=== PATIENT | female | born 1945 | race Caucasian/White ===

== ENCOUNTER 2018-06-14 17:00 | Inpatient (IN) | payer MEDICARE, MEDICAID ==
--- NOTE | 2018-06-14 17:07 | ED Physician Chart ---
ED Chief Complaint/HPI - Patient Information Date Seen:: 06/14/18 Time Seen:: 17:25 Chief Complaint:: Agitation History of Present Illness:: onset x 2 days of agitation and hostile behavior; no report of trauma, LOC, ALOC , AMS, H/As, neck pain, C/P, SOB, SIs, Abd. Pain, A/N/V/D/C, fever, chills, or urinary s/s Historian:: Patient, EMS Review:: Nurse's Note Reviewed, Old Chart Reviewed, EMS run form Reviewed ED Review of Systems - Review of Systems General/Constitutional: No fever, No chills, No weight loss, No weakness, No diaphoresis, No edema, No loss of appetite Skin: No skin lesions, No rash, No bruising Head: No headache, No light-headedness Eyes: No loss of vision, No pain, No diplopia ENT: No earache, No nasal drainage, No sore throat, No tinnitus Neck: No neck pain, No swelling, No thyromegaly, No stiffness, No mass noted Cardio Vascular: No chest pain, No palpitations, No PND, No orthopnea, No edema Pulmonary: No SOB, No cough, No sputum, No wheezing GI: No nausea, No vomiting, No diarrhea, No pain, No melena, No hematochezia, No constipation, No hematemesis G/U: No dysuria, No frequency, No hematuria, No nacturia Cell Tender: No vaginal discharge, No abnormal vaginal bleed, No contraction Musculoskeletal: No bone or joint pain, No back pain, No muscle pain Endocrine: No polyuria, No polydipsia Psychiatric: Prior psych history, Depression, Anxiety, No suicidal ideation, No homicidal ideation, No auditory hallucination, No visual hallucination Hematopoietic: No bruising, No lymphadenopathy Allergic/Immuno: No urticaria, No angioedema Neurological: No syncope, No focal symptoms, No weakness, No paresthesia, No headache, No seizure, No dizziness, Confusion, No vertigo ED Past Medical History - Past Medical History Obtainable: Yes Past Medical History: HTN, DM, PUD/GERD, ESRD, Dementia Family History: Diabetes Melitus, HTN Social History: Non Smoker, No Alcohol, No Drug Use, Single, Care Facility Surgical History: None Psychiatricy History: Depression, Bipolar, Dementia Medication: Reviewed Family Medical History - Family Member Mother History Unknown: Yes ED Physical Exam - Physical Examination General/Constitutional: Awake, Well-developed, well-nourished, Alert, No distress, GCS 15, Non-toxic appearing, Ambulatory Head: Atraumatic Eyes: Lids, conjuctiva normal, PERRL, EOMI Skin: Nl inspection, No rash, No skin lesions, No ecchymosis, Well hydrated, No lymphadenopathy ENMT: External ears, nose nl, TM canals nl, Nasal exam nl, Lips, teeth, gums nl , Oropharynx nl, Tonsils nl Neck: Nontender, Full ROM w/o pain, No JVD, No nuchal rigidity, No bruit, No mass, No stridor Respiratory: Nl effort/Exclusion, Clear to Auscultation, No Wheeze/Rhonchi/Rales Cardio Vascular: RRR, No murmur, gallop, rubs, NL S1 S2, Carotid/Femoral/Distal pulses equal bilaterally GI: No tenderness/rebounding/guarding, No organomegaly, No hernia, Normal BS's, Nondistended, No mass/bruits, No McBurney tenderness : No CVA tenderness Extremities: No tenderness or effusion, Full ROM, normal strength in all extremities, No edema, Normal digits & nails Neuro/Psych: Alert/oriented, DTR's symmetric, Normal sensory exam, Normal motor strength, Judgement/insight normal, Mood normal, Normal gait, No focal deficits Other Neuro/Psych comments:: + Psychomotor Agitation; no SIs; Mood/Affect: Labile Misc: Normal back, No paraspinal tenderness ED Labs/Radiology/EKG Results - Lab Results Comments:: Reviewed - EKG Interpretations EKG Time:: 17:35 Rate & Rhythm: 76; NSR Comments:: non-specific st-t changes ED Septic Shock - . Is Septic Shock (SBP<90, OR Lactate>4 mmol\L) present?: No ED Reassessment (Disposition) - Reassessment Reassessment Condition:: Improved - Diagnosis Diagnosis:: Agitation; Psychosis; Dementia; Medical Clearance; Bipolar Disorder - Aftercare/Follow up Instructions Aftercare/Follow-Up Instructions:: Counseled pt regarding lab results/diagnosis & need follow up, Counseled pt & family regarding lab results/diagnosis & need follow up - Patient Disposition Discharge/Transfer:: Acute Care w/in this hosp Admitted to:: [facility] Condition at Disposition:: Stable, Improved
[2018-06-14 17:26] LABS: % EOSINOPHILS 3.2 % (0.0-5.0); % LYMPHOCYTES 39.5 % (20.0-50.0); % MONOCYTES 6.3 % (2.0-10.0); BASOPHILE ABSOLUTE 0.1 Th/cumm (0-0.2); EOSINOPHILE ABSOLUTE 0.4 Th/cmm (0.1-0.4); HEMATOCRIT 36.8 % (41.0-60); HEMOGLOBIN 12.1 gm/dL (12-16); LYMPHOCYTE ABSOLUTE 4.9 Th/cmm (1.5-3.0); MEAN CELL VOLUME 96.4 fl (81-100); MEAN CORPUSCULAR HEMOGLOBIN 31.7 pg (27.0-31.0); MEAN CORPUSCULAR HGB CONC 32.9 pg (28.0-36.0); MEAN PLATELET VOLUME 9.2 fl; MONOCYTE ABSOLUTE 0.8 Th/cmm (0.3-1.0); NEUTROPHILE ABSOLUTE 6.1 Th/cmm (1.8-8.0); PLATELET COUNT 375 Th/cmm (150-400); RED BLOOD COUNT 3.82 Mil/cmm (3.80-5.20); RED CELL DISTRIBUTION WIDTH 14.3 % (11.5-20.0); WHITE BLOOD COUNT 12.3 Th/cmm (4.8-10.8)
[2018-06-14 17:48] LABS: ACETAMINOPHEN < 10.0 ug/mL (10.0-30.0); ALB/GLOB RATIO 1.1 (1.0-1.8); ALKALINE PHOSPHATASE 72 U/L (34-104); ANION GAP 13.4 (7.0-16.0); BILIRUBIN,TOTAL 0.3 mg/dL (0.3-1.0); BUN - UREA NITROGEN 25 mg/dL (7-25); CALCIUM SERUM 9.9 mg/dL (8.6-10.3); CARBON DIOXIDE 26.2 mEq/L (21.0-31.0); CHLORIDE 106 mEq/L (98-107); CHOLESTEROL 215 mg/dL (<200); GLUCOSE 118 mg/dL (70-105); HDL -HIGH DENSITY LIPOPROTEIN 45 mg/dL (23-92); POTASSIUM SERUM 3.6 mEq/L (3.5-5.1); SALICYLATES (ASPIRIN) < 25.0 mg/L (30.0-100.0); SGOT 15 U/L (13-39); SGPT/ALT 13 U/L (7-52); SODIUM SERUM 142 mEq/L (136-145); TOTAL PROTEIN,SERUM 7.6 gm/dL (6.0-8.3); TRIGLYCERIDES 241 mg/dL (<150)
[2018-06-14] MEDS ORDERED: Haloperidol Lactate 5 mg/mL 1mL Vial IM STA (17:57)
[2018-06-14] MEDS ORDERED: Haloperidol Lactate 5 mg/mL 1mL Vial ONE (17:59)
[2018-06-14] MEDS ORDERED: Non-Formulary Item 1 EA (Acetaminophen [Tylenol] 650 MG) PO PRN (20:35)
[2018-06-14] MEDS ORDERED: Magnesium Hydroxide (MOM) 30 mL UDC PO PRN (20:35)
[2018-06-14] MEDS ORDERED: Maalox 30 mL Cup PO PRN (20:41)
[2018-06-14] MEDS ORDERED: Non-Formulary Item 1 EA (Mirtazapine [Mirtazapine] 7.5 MG) PO SCH (21:00)
[2018-06-14] MEDS: INSULIN ASPART SLIDING SCALE 100 UNITS/ML UNIT SUBQ SCH (22:26)
--- NOTE | 2018-06-14 22:39 | History & Physical ---
ADMIT DATE: 06/14/2018 HISTORY OF PRESENT ILLNESS: The patient is a 72-year-old female with long history of diabetes mellitus, hypertension, hyperlipidemia, dementia, psychosis, admitted to [facility] under Dr. Regan's service for evaluation and treatment. The patient is a poor historian. No fever, no chills, no nausea, no vomiting. The patient has been very agitated. PAST MEDICAL HISTORY: Significant for diabetes mellitus, hypertension, hyperlipidemia, dementia, psychosis. PAST SURGICAL HISTORY: No recent surgery. ALLERGIES: None. MEDICATIONS: Follow admission reconciliation. SOCIAL HISTORY: No smoking, no alcohol, no drugs. FAMILY HISTORY: Noncontributory. REVIEW OF SYSTEMS: RENAL SYSTEM: No history of chronic renal disorder. CARDIOVASCULAR SYSTEM: No coronary artery disease. ENDOCRINE SYSTEM: She has history of diabetes mellitus. GASTROINTESTINAL SYSTEM: No upper or lower gastrointestinal bleed. NEUROLOGICAL SYSTEM: No seizure disorder. MUSCULOSKELETAL SYSTEM: No muscular dystrophy. HEMATOLOGAL SYSTEM: No bleeding tendencies. RESPIRATORY SYSTEM: No asthma. GENITOURINARY: No dysuria or hematuria. PHYSICAL EXAMINATION: GENERAL: She is awake, not coherent. VITAL SIGNS: Temperature ____, heart rate 71, blood pressure 167/90. HEENT: Normocephalic. Pupils reactive to light and accommodation. Sclerae clear. NECK: Supple. Negative for lymphadenopathy, JVD or bruit. CHEST: Entry of air bilaterally normal. No rhonchi or wheezing. HEART: S1, S2 normal. No murmur or gallop rhythm. ABDOMEN: Soft, bowel sounds positive. EXTREMITIES: No edema. NEUROLOGIC: She is awake, not coherent. No focal motor or sensory deficit. LABORATORY DATA: White blood cell 12.3, hemoglobin 36.8, platelets 31.7. Sodium 142, potassium 3.6, BUN 25, creatinine 2.0, glucose 118, cholesterol 215. ASSESSMENT: 1. Diabetes mellitus. 2. Hypertension. 3. Hyperlipidemia. 4. Psychosis. 5. Dementia. PLAN: The patient will continue on current medication. The patient was admitted to the hospital under Dr. Regan's service. Medical problem addressed during this hospitalization: Psychosis and dementia. Medical problems addressed at discharge: Diabetes mellitus, hypertension, hyperlipidemia. The patient is medically stable for activity. Thank you, Dr. Regan, for asking me to see your patient. We will collect urine for the UA, culture and sensitivity. Also, we will start the patient on sliding scale with regular insulin a.c. and at bedtime. The patient is a full code. JOB# [id number]
[2018-06-14 23:19] VITALS: BP 121/54
[2018-06-15] MEDS: INSULIN ASPART SLIDING SCALE 100 UNITS/ML UNIT SUBQ SCH ×4 (06:30→20:27)
[2018-06-15] MEDS: Multivitamin Tab PO SCH (08:39)
[2018-06-15] MEDS ORDERED: INSULIN HUMAN REGULAR 100 UNITS/ML UNIT SUBQ SCH (09:00)
--- NOTE | 2018-06-15 09:43 | History & Physical ---
ADMIT DATE: 06/14/2018 IDENTIFYING INFORMATION: The patient is a 72-year-old female. CHIEF COMPLAINT: No answer. HISTORY OF PRESENT ILLNESS: The patient was admitted on a hold. The patient was yelling and screaming. According to the hold, very confused, making nonsensical statements, refusing to sign voluntary admission. She was for psych evaluation. She has been noncompliant with her medication. The patient was a total care, very agitated, confused, and unable to state a safe plan for self-care, and redirectable. She had to be medicated. When I tried to talk to her, she was somewhat sedated because she got medicated. PAST PSYCHIATRIC HISTORY: Dementia and bipolar disorder. PAST MEDICAL HISTORY: The patient has hypertension, hyperlipidemia, and diabetes mellitus. MEDICATIONS: The patient's medication was restarted, which is Remeron 7.5 mg at bedtime, Seroquel 25 mg twice a day and 100 mg at bedtime. Also, Dr. Brad Randolph currently ordered the emergency medication for her, which was Haldol 5 mg with Benadryl 50 mg. I was unable to get any information from her, but she is a well-known patient with a history of dementia and bipolar disorder. FAMILY AND SOCIAL HISTORY: Unobtainable. She apparently have children and grandchildren, who are involved in her treatment. MENTAL STATUS EXAMINATION: The patient is appropriately dressed, not well groomed. She was somewhat sedated; however, upon admission, she was very agitated, confused, refusing care, yelling, screaming, and refusing care. From my history with her, I know, her long and short-term memory is poor. Her insight and judgment, she has no idea she has a problem. Judgment is poor with her behavior. She has not been sleeping or eating well. 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 MEDICAL DIAGNOSES: Hypertension and diabetes mellitus. INITIAL TREATMENT PLAN: The patient will be restarted on medication, we will adjust medications as needed. We will do group therapy and milieu therapy. ESTIMATED LENGTH OF STAY: 7-10 days. DISCHARGE CRITERIA: Decrease psychosis and agitation. Discharge outpatient. [facility]# [id number]
[2018-06-15 14:29] LABS: CHOLESTEROL 200 mg/dL (<200); HDL -HIGH DENSITY LIPOPROTEIN 40 mg/dL (23-92); TRIGLYCERIDES 189 mg/dL (<150)
--- NOTE | 2018-06-15 20:10 | Internal Medicine Prog Note ---
Internal Medicine Subjective - Subjective Service Date: 06/15/18 Patient seen and examined:: with staff Patient is:: awake, verbal, in bed, talking, confused Per staff patient has:: no adverse event Internal Medicine Objective - Results Result Diagrams: 06/14/18 17:19 06/14/18 17:19 Recent Labs: Laboratory Last Values WBC 12.3 Th/cmm (4.8-10.8) H 06/14/18 17:19 RBC 3.82 Mil/cmm (3.80-5.20) 06/14/18 17:19 Hgb 12.1 gm/dL (12-16) 06/14/18 17:19 Hct 36.8 % (41.0-60) L 06/14/18 17:19 MCV 96.4 fl (81-100) 06/14/18 17:19 MCH 31.7 pg (27.0-31.0) H 06/14/18 17:19 MCHC Differential 32.9 pg (28.0-36.0) 06/14/18 17:19 RDW 14.3 % (11.5-20.0) 06/14/18 17:19 Plt Count 375 Th/cmm (150-400) 06/14/18 17:19 MPV 9.2 fl 06/14/18 17:19 Neutrophils % 50.0 % (40.0-80.0) 06/14/18 17:19 Lymphocytes % 39.5 % (20.0-50.0) 06/14/18 17:19 Monocytes % 6.3 % (2.0-10.0) 06/14/18 17:19 Eosinophils % 3.2 % (0.0-5.0) 06/14/18 17:19 Basophils % 1.0 % (0.0-2.0) 06/14/18 17:19 Sodium 142 mEq/L (136-145) 06/14/18 17:19 Potassium 3.6 mEq/L (3.5-5.1) 06/14/18 17:19 Chloride 106 mEq/L (98-107) 06/14/18 17:19 Carbon Dioxide 26.2 mEq/L (21.0-31.0) 06/14/18 17:19 Anion Gap 13.4 (7.0-16.0) 06/14/18 17:19 BUN 25 mg/dL (7-25) 06/14/18 17:19 Creatinine 1.0 mg/dL (0.6-1.2) 06/14/18 17:19 Est GFR ( Amer) TNP 06/14/18 17:19 Est GFR (Non-Af Amer) TNP 06/14/18 17:19 BUN/Creatinine Ratio 25.0 06/14/18 17:19 Glucose 118 mg/dL (70-105) H 06/14/18 17:19 POC Glucose 147 MG/DL (70 - 105) H 06/15/18 19:45 Calcium 9.9 mg/dL (8.6-10.3) 06/14/18 17:19 Total Bilirubin 0.3 mg/dL (0.3-1.0) 06/14/18 17:19 AST 15 U/L (13-39) 06/14/18 17:19 ALT 13 U/L (7-52) 06/14/18 17:19 Alkaline Phosphatase 72 U/L (34-104) 06/14/18 17:19 Troponin I 0.01 ng/mL (0.01-0.05) 06/14/18 17:19 Total Protein 7.6 gm/dL (6.0-8.3) 06/14/18 17:19 Albumin 4.0 gm/dL (3.7-5.3) 06/14/18 17:19 Globulin 3.6 gm/dL 06/14/18 17:19 Albumin/Globulin Ratio 1.1 (1.0-1.8) 06/14/18 17:19 Triglycerides 189 mg/dL (<150) H 06/15/18 06:05 Cholesterol 200 mg/dL (<200) 06/15/18 06:05 LDL Cholesterol Direct 143 mg/dL (75-193) 06/15/18 06:05 HDL Cholesterol 40 mg/dL (23-92) 06/15/18 06:05 TSH 0.48 uIU/ml (0.34-5.60) 06/14/18 17:19 Salicylates < 25.0 mg/L (30.0-100.0) L 06/14/18 17:19 Acetaminophen < 10.0 ug/mL (10.0-30.0) L 06/14/18 17:19 Ethyl Alcohol < 10 mg/dL (0-10) 06/14/18 17:19 - Physical Exam Vitals and I&O: Vital Signs Temp 98.1 F 06/15/18 15:58 Pulse 79 06/15/18 15:58 Resp 20 06/15/18 15:58 BP 143/88 06/15/18 15:58 Pulse Ox 97 06/15/18 15:58 Intake & Output 06/15/18 06/15/18 06/16/18 06:59 18:59 06:59 Intake Total 60 Balance 60 Intake: Oral 60 Other: # Voids 1 # Bowel Movements 1 Active Medications: Current Medications Acetaminophen (Tylenol) 650 mg PO Q4HR PRN PRN Reason: Mild Pain / Temp above 100 Stop: 08/13/18 20:40 Last Admin: 06/15/18 11:11 Dose: 650 mg Al Hydrox/Mg Hydrox/Simethicone (Maalox) 30 ml PO Q4HR PRN PRN Reason: GI DISTRESS Stop: 08/13/18 20:40 Amlodipine Besylate (Norvasc) 10 mg PO DAILY [facility] Stop: 08/14/18 08:59 Last Admin: 06/15/18 08:39 Dose: Not Given Docusate Sodium (Colace) 100 mg PO BID [facility] Stop: 08/14/18 08:59 Last Admin: 06/15/18 17:14 Dose: 100 mg Heparin Sodium (Porcine) (Heparin) 5,000 units SUBQ Q12HR [facility] Stop: 08/13/18 21:59 Last Admin: 06/15/18 08:39 Dose: 5,000 units Insulin Aspart (Novolog Insulin Sliding Scale) 0 units SUBQ ACHS [facility]; Protocol Stop: 08/13/18 20:59 Last Admin: 06/15/18 17:11 Dose: Not Given Lorazepam (Ativan) 0.5 mg PO Q4H PRN; Protocol PRN Reason: Anxiety Stop: 08/13/18 20:34 Last Admin: 06/15/18 17:13 Dose: 0.5 mg Magnesium Hydroxide (Milk Of Magnesia) 30 ml PO Q4H PRN PRN Reason: Constipation Stop: 08/13/18 20:34 Metformin HCl (Glucophage) 500 mg PO BID [facility] Stop: 08/14/18 08:59 Last Admin: 06/15/18 17:14 Dose: 500 mg Mirtazapine (Remeron) 7.5 mg PO HS [facility]; Protocol Stop: 08/14/18 20:59 Multivitamins/Vitamin C (Theragran) 1 tab PO DAILY [facility] Stop: 08/14/18 08:59 Last Admin: 06/15/18 08:39 Dose: 1 tab Quetiapine Fumarate (Seroquel) 25 mg PO BID [facility]; Protocol Stop: 08/14/18 08:59 Last Admin: 06/15/18 17:14 Dose: 25 mg Quetiapine Fumarate (Seroquel) 100 mg PO HS [facility]; Protocol Stop: 08/13/18 20:59 Last Admin: 06/14/18 22:07 Dose: 100 mg Zolpidem Tartrate (Ambien) 5 mg PO HS PRN PRN Reason: Insomnia Stop: 08/13/18 20:40 General: demented HEENT: NC/AT, PERRLA, EOMI, anicteric sclerae, throat clear Neck: Supple, No JVD, No thyromegaly, +2 carotid pulse wo bruit, No LAD, + JVD Cardiovascular: Normal S1, Normal S2, without murmur Abdomen: soft, non-tender, non-distended Extremities: clear Neurological: no change Internal Medicine Assmt/Plan - Assessment Assessment: 1.DM. 2.HTN. 3.HYPERLIPIDEMIA. 4.DEMENTIA. - Plan Plan: CONTINUE ON CURRENT MEDICATION AND DIET.
[2018-06-16] MEDS: INSULIN ASPART SLIDING SCALE 100 UNITS/ML UNIT SUBQ SCH ×4 (06:31→21:00)
[2018-06-16] MEDS: Multivitamin Tab PO SCH (10:00)
[2018-06-16] MEDS ORDERED: Haloperidol Lactate 5 mg/mL 1mL Vial IM ONE (14:43)
--- NOTE | 2018-06-16 22:10 | Progress Notes ---
DATE: 06/16/2018 Case was discussed with staff of the patient, reviewed records. The patient continues to be psychotic, yelling and screaming. She was on the observation room. Continues to be unable to carry on a conversation or make safe plan for self-care. Continues to be unpredictable, impulsive, needing redirection. The patient was started back on her medication; however, the patient was noncompliant with medication before that and I am not going to increase the dose yet because of her age, give her more time. We will continue outpatient group therapy, milieu therapy, and adjust the medication as needed. JOB# [id number]
--- NOTE | 2018-06-16 22:14 | Internal Medicine Prog Note ---
Internal Medicine Subjective - Subjective Service Date: 06/16/18 Patient seen and examined:: with staff Patient is:: awake, verbal, in bed, talking, confused Per staff patient has:: no adverse event Internal Medicine Objective - Results Result Diagrams: 06/14/18 17:19 06/14/18 17:19 Recent Labs: Laboratory Last Values WBC 12.3 Th/cmm (4.8-10.8) H 06/14/18 17:19 RBC 3.82 Mil/cmm (3.80-5.20) 06/14/18 17:19 Hgb 12.1 gm/dL (12-16) 06/14/18 17:19 Hct 36.8 % (41.0-60) L 06/14/18 17:19 MCV 96.4 fl (81-100) 06/14/18 17:19 MCH 31.7 pg (27.0-31.0) H 06/14/18 17:19 MCHC Differential 32.9 pg (28.0-36.0) 06/14/18 17:19 RDW 14.3 % (11.5-20.0) 06/14/18 17:19 Plt Count 375 Th/cmm (150-400) 06/14/18 17:19 MPV 9.2 fl 06/14/18 17:19 Neutrophils % 50.0 % (40.0-80.0) 06/14/18 17:19 Lymphocytes % 39.5 % (20.0-50.0) 06/14/18 17:19 Monocytes % 6.3 % (2.0-10.0) 06/14/18 17:19 Eosinophils % 3.2 % (0.0-5.0) 06/14/18 17:19 Basophils % 1.0 % (0.0-2.0) 06/14/18 17:19 Sodium 142 mEq/L (136-145) 06/14/18 17:19 Potassium 3.6 mEq/L (3.5-5.1) 06/14/18 17:19 Chloride 106 mEq/L (98-107) 06/14/18 17:19 Carbon Dioxide 26.2 mEq/L (21.0-31.0) 06/14/18 17:19 Anion Gap 13.4 (7.0-16.0) 06/14/18 17:19 BUN 25 mg/dL (7-25) 06/14/18 17:19 Creatinine 1.0 mg/dL (0.6-1.2) 06/14/18 17:19 Est GFR ( Amer) TNP 06/14/18 17:19 Est GFR (Non-Af Amer) TNP 06/14/18 17:19 BUN/Creatinine Ratio 25.0 06/14/18 17:19 Glucose 118 mg/dL (70-105) H 06/14/18 17:19 POC Glucose 127 MG/DL (70 - 105) H 06/16/18 22:03 Calcium 9.9 mg/dL (8.6-10.3) 06/14/18 17:19 Total Bilirubin 0.3 mg/dL (0.3-1.0) 06/14/18 17:19 AST 15 U/L (13-39) 06/14/18 17:19 ALT 13 U/L (7-52) 06/14/18 17:19 Alkaline Phosphatase 72 U/L (34-104) 06/14/18 17:19 Troponin I 0.01 ng/mL (0.01-0.05) 06/14/18 17:19 Total Protein 7.6 gm/dL (6.0-8.3) 06/14/18 17:19 Albumin 4.0 gm/dL (3.7-5.3) 06/14/18 17:19 Globulin 3.6 gm/dL 06/14/18 17:19 Albumin/Globulin Ratio 1.1 (1.0-1.8) 06/14/18 17:19 Triglycerides 189 mg/dL (<150) H 06/15/18 06:05 Cholesterol 200 mg/dL (<200) 06/15/18 06:05 LDL Cholesterol Direct 143 mg/dL (75-193) 06/15/18 06:05 HDL Cholesterol 40 mg/dL (23-92) 06/15/18 06:05 TSH 0.48 uIU/ml (0.34-5.60) 06/14/18 17:19 Salicylates < 25.0 mg/L (30.0-100.0) L 06/14/18 17:19 Acetaminophen < 10.0 ug/mL (10.0-30.0) L 06/14/18 17:19 Ethyl Alcohol < 10 mg/dL (0-10) 06/14/18 17:19 - Physical Exam Vitals and I&O: Vital Signs Temp 98.2 F 06/16/18 21:06 Pulse 82 06/16/18 21:06 Resp 19 06/16/18 21:06 BP 149/64 06/16/18 21:06 Pulse Ox 96 06/16/18 21:06 Intake & Output 06/16/18 06/16/18 06/17/18 06:59 18:59 06:59 Intake Total 120 Balance 120 Intake: Oral 120 Other: # Voids 3 # Bowel Movements 0 Active Medications: Current Medications Acetaminophen (Tylenol) 650 mg PO Q4HR PRN PRN Reason: Mild Pain / Temp above 100 Stop: 08/13/18 20:40 Last Admin: 06/15/18 11:11 Dose: 650 mg Al Hydrox/Mg Hydrox/Simethicone (Maalox) 30 ml PO Q4HR PRN PRN Reason: GI DISTRESS Stop: 08/13/18 20:40 Amlodipine Besylate (Norvasc) 10 mg PO DAILY [facility] Stop: 08/14/18 08:59 Last Admin: 06/16/18 10:00 Dose: 10 mg Docusate Sodium (Colace) 100 mg PO BID [facility] Stop: 08/14/18 08:59 Last Admin: 06/16/18 16:39 Dose: 100 mg Heparin Sodium (Porcine) (Heparin) 5,000 units SUBQ Q12HR [facility] Stop: 08/13/18 21:59 Last Admin: 06/16/18 21:47 Dose: 5,000 units Insulin Aspart (Novolog Insulin Sliding Scale) 0 units SUBQ ACHS [facility]; Protocol Stop: 08/13/18 20:59 Last Admin: 06/16/18 17:02 Dose: Not Given Lorazepam (Ativan) 0.5 mg PO Q4H PRN; Protocol PRN Reason: Anxiety Stop: 08/13/18 20:34 Last Admin: 06/16/18 21:41 Dose: 0.5 mg Magnesium Hydroxide (Milk Of Magnesia) 30 ml PO Q4H PRN PRN Reason: Constipation Stop: 08/13/18 20:34 Metformin HCl (Glucophage) 500 mg PO BID [facility] Stop: 08/14/18 08:59 Last Admin: 06/16/18 16:39 Dose: 500 mg Mirtazapine (Remeron) 7.5 mg PO HS [facility]; Protocol Stop: 08/14/18 20:59 Last Admin: 06/16/18 21:41 Dose: 7.5 mg Multivitamins/Vitamin C (Theragran) 1 tab PO DAILY [facility] Stop: 08/14/18 08:59 Last Admin: 06/16/18 10:00 Dose: 1 tab Quetiapine Fumarate (Seroquel) 25 mg PO BID [facility]; Protocol Stop: 08/14/18 08:59 Last Admin: 06/16/18 16:40 Dose: 25 mg Quetiapine Fumarate (Seroquel) 100 mg PO HS [facility]; Protocol Stop: 08/13/18 20:59 Last Admin: 06/16/18 21:41 Dose: 100 mg Zolpidem Tartrate (Ambien) 5 mg PO HS PRN PRN Reason: Insomnia Stop: 08/13/18 20:40 Last Admin: 06/16/18 21:40 Dose: 5 mg General: demented HEENT: NC/AT, PERRLA, EOMI, anicteric sclerae, throat clear Neck: Supple, No JVD, No thyromegaly, +2 carotid pulse wo bruit, No LAD, + JVD Cardiovascular: Normal S1, Normal S2, without murmur Abdomen: soft, non-tender, non-distended Extremities: clear Neurological: no change Internal Medicine Assmt/Plan - Assessment Assessment: 1.DM. 2.HTN. 3.HYPERLIPIDEMIA. 4.DEMENTIA. - Plan Plan: CONTINUE ON CURRENT MEDICATION AND DIET.
[2018-06-17] MEDS: INSULIN ASPART SLIDING SCALE 100 UNITS/ML UNIT SUBQ SCH ×4 (06:42→21:13)
[2018-06-17] MEDS: Multivitamin Tab PO SCH (09:37)
--- NOTE | 2018-06-17 13:07 | Progress Notes ---
DATE: 06/17/2018 Case was discussed with staff of the patient, reviewed records. The patient yesterday had to be medicated. She was acting out, yelling, screaming, had to be given Haldol 2 mg with Benadryl 25 mg. The patient continues to have poor insight, unpredictable, impulsive, needing redirection, demented, confused. No side effects with the medication, no sedation, no nausea, no extrapyramidal symptoms. She is also on Remeron 7.5 mg at bedtime, Seroquel 25 mg twice a day and 100 mg at bedtime. Her lab work showed only blood sugar being high at 126 this morning and we will continue outpatient group therapy, milieu therapy, and adjust medications as needed. JOB# [id number]
--- NOTE | 2018-06-17 22:24 | Internal Medicine Prog Note ---
Internal Medicine Subjective - Subjective Service Date: 06/17/18 Patient seen and examined:: with staff Patient is:: awake, verbal, in bed, talking, confused Per staff patient has:: no adverse event Internal Medicine Objective - Results Result Diagrams: 06/14/18 17:19 06/14/18 17:19 Recent Labs: Laboratory Last Values WBC 12.3 Th/cmm (4.8-10.8) H 06/14/18 17:19 RBC 3.82 Mil/cmm (3.80-5.20) 06/14/18 17:19 Hgb 12.1 gm/dL (12-16) 06/14/18 17:19 Hct 36.8 % (41.0-60) L 06/14/18 17:19 MCV 96.4 fl (81-100) 06/14/18 17:19 MCH 31.7 pg (27.0-31.0) H 06/14/18 17:19 MCHC Differential 32.9 pg (28.0-36.0) 06/14/18 17:19 RDW 14.3 % (11.5-20.0) 06/14/18 17:19 Plt Count 375 Th/cmm (150-400) 06/14/18 17:19 MPV 9.2 fl 06/14/18 17:19 Neutrophils % 50.0 % (40.0-80.0) 06/14/18 17:19 Lymphocytes % 39.5 % (20.0-50.0) 06/14/18 17:19 Monocytes % 6.3 % (2.0-10.0) 06/14/18 17:19 Eosinophils % 3.2 % (0.0-5.0) 06/14/18 17:19 Basophils % 1.0 % (0.0-2.0) 06/14/18 17:19 Sodium 142 mEq/L (136-145) 06/14/18 17:19 Potassium 3.6 mEq/L (3.5-5.1) 06/14/18 17:19 Chloride 106 mEq/L (98-107) 06/14/18 17:19 Carbon Dioxide 26.2 mEq/L (21.0-31.0) 06/14/18 17:19 Anion Gap 13.4 (7.0-16.0) 06/14/18 17:19 BUN 25 mg/dL (7-25) 06/14/18 17:19 Creatinine 1.0 mg/dL (0.6-1.2) 06/14/18 17:19 Est GFR ( Amer) TNP 06/14/18 17:19 Est GFR (Non-Af Amer) TNP 06/14/18 17:19 BUN/Creatinine Ratio 25.0 06/14/18 17:19 Glucose 118 mg/dL (70-105) H 06/14/18 17:19 POC Glucose 155 MG/DL (70 - 105) H 06/17/18 19:45 Calcium 9.9 mg/dL (8.6-10.3) 06/14/18 17:19 Total Bilirubin 0.3 mg/dL (0.3-1.0) 06/14/18 17:19 AST 15 U/L (13-39) 06/14/18 17:19 ALT 13 U/L (7-52) 06/14/18 17:19 Alkaline Phosphatase 72 U/L (34-104) 06/14/18 17:19 Troponin I 0.01 ng/mL (0.01-0.05) 06/14/18 17:19 Total Protein 7.6 gm/dL (6.0-8.3) 06/14/18 17:19 Albumin 4.0 gm/dL (3.7-5.3) 06/14/18 17:19 Globulin 3.6 gm/dL 06/14/18 17:19 Albumin/Globulin Ratio 1.1 (1.0-1.8) 06/14/18 17:19 Triglycerides 189 mg/dL (<150) H 06/15/18 06:05 Cholesterol 200 mg/dL (<200) 06/15/18 06:05 LDL Cholesterol Direct 143 mg/dL (75-193) 06/15/18 06:05 HDL Cholesterol 40 mg/dL (23-92) 06/15/18 06:05 TSH 0.48 uIU/ml (0.34-5.60) 06/14/18 17:19 Salicylates < 25.0 mg/L (30.0-100.0) L 06/14/18 17:19 Acetaminophen < 10.0 ug/mL (10.0-30.0) L 06/14/18 17:19 Ethyl Alcohol < 10 mg/dL (0-10) 06/14/18 17:19 RPR NONREACTIVE (NONREACTIVE) 06/14/18 17:19 - Physical Exam Vitals and I&O: Vital Signs Temp 98.1 F 06/17/18 20:40 Pulse 85 06/17/18 20:40 Resp 20 06/17/18 20:40 BP 146/93 06/17/18 20:40 Pulse Ox 97 06/17/18 20:40 Intake & Output 06/17/18 06/17/18 06/18/18 06:59 18:59 06:59 Intake Total 120 860 Balance 120 860 Intake: Oral 120 860 Other: # Voids 3 3 # Bowel Movements 0 Stool Characteristics Soft Active Medications: Current Medications Acetaminophen (Tylenol) 650 mg PO Q4HR PRN PRN Reason: Mild Pain / Temp above 100 Stop: 08/13/18 20:40 Last Admin: 06/15/18 11:11 Dose: 650 mg Al Hydrox/Mg Hydrox/Simethicone (Maalox) 30 ml PO Q4HR PRN PRN Reason: GI DISTRESS Stop: 08/13/18 20:40 Amlodipine Besylate (Norvasc) 10 mg PO DAILY [facility] Stop: 08/14/18 08:59 Last Admin: 06/17/18 09:38 Dose: Not Given Docusate Sodium (Colace) 100 mg PO BID [facility] Stop: 08/14/18 08:59 Last Admin: 06/17/18 16:16 Dose: Not Given Heparin Sodium (Porcine) (Heparin) 5,000 units SUBQ Q12HR [facility] Stop: 08/13/18 21:59 Last Admin: 06/17/18 21:09 Dose: 5,000 units Insulin Aspart (Novolog Insulin Sliding Scale) 0 units SUBQ ACHS [facility]; Protocol Stop: 08/13/18 20:59 Last Admin: 06/17/18 21:13 Dose: 2 units Lorazepam (Ativan) 0.5 mg PO Q4H PRN; Protocol PRN Reason: Anxiety Stop: 08/13/18 20:34 Last Admin: 06/17/18 21:08 Dose: 0.5 mg Magnesium Hydroxide (Milk Of Magnesia) 30 ml PO Q4H PRN PRN Reason: Constipation Stop: 08/13/18 20:34 Metformin HCl (Glucophage) 500 mg PO BID [facility] Stop: 08/14/18 08:59 Last Admin: 06/17/18 16:16 Dose: 500 mg Mirtazapine (Remeron) 7.5 mg PO HS [facility]; Protocol Stop: 08/14/18 20:59 Last Admin: 06/17/18 21:08 Dose: 7.5 mg Multivitamins/Vitamin C (Theragran) 1 tab PO DAILY [facility] Stop: 08/14/18 08:59 Last Admin: 06/17/18 09:37 Dose: Not Given Quetiapine Fumarate (Seroquel) 25 mg PO BID [facility]; Protocol Stop: 08/14/18 08:59 Last Admin: 06/17/18 16:16 Dose: 25 mg Quetiapine Fumarate (Seroquel) 100 mg PO HS [facility]; Protocol Stop: 08/13/18 20:59 Last Admin: 06/17/18 21:09 Dose: 100 mg Zolpidem Tartrate (Ambien) 5 mg PO HS PRN PRN Reason: Insomnia Stop: 08/13/18 20:40 Last Admin: 06/17/18 21:09 Dose: 5 mg General: demented HEENT: NC/AT, PERRLA, EOMI, anicteric sclerae, throat clear Neck: Supple, No JVD, No thyromegaly, +2 carotid pulse wo bruit, No LAD, + JVD Cardiovascular: Normal S1, Normal S2, without murmur Abdomen: soft, non-tender, non-distended Extremities: clear Neurological: no change Internal Medicine Assmt/Plan - Assessment Assessment: 1.DM. 2.HTN. 3.HYPERLIPIDEMIA. 4.DEMENTIA. - Plan Plan: CONTINUE ON CURRENT MEDICATION AND DIET. Nutritional Asmnt/Malnutr-PDOC - Dietary Evaluation Malnutrition Findings (Please click <Entered> for more info): Nutritional Asmnt/Malnutrition Start: 06/17/18 12: 46 Text: Status: Complete Freq: Protocol: Document 06/17/18 12:46 DAYANNA (Rec: 06/17/18 12:55 DAYANNA [email or web address]) Nutritional Asmnt/Malnutrition Patient General Information Nutritional Screening Moderate Risk Diagnosis psychosis Pertinent Medical Hx/Surgical Hx HTN, DM, hyperlipidemia, dementia, bipolar disorder, psychosis, PUD/GERD, ESRD Subjective Information Pt sleeping at time of visit. Nursing noted PO intake: ~75%. Current Diet Order/ Nutrition Support [facility] soft chopped, EMILY, CCHO Pertinent Medications colace, heparin, novolog, metformin, remeron, theragran, seroquel Pertinent Labs 06/17: POC 108-126 06/16: POC 127-129 06/14 glucose 118 Nutritional Hx/Data Height 1.7 m Height (Calculated Centimeters) 170.2 Current Weight (lbs) 77.111 kg Weight (Calculated Kilograms) 77.1 Weight (Calculated Grams) 72315.7 [place] Body Weight 135 lb Body Mass Index (BMI) 26.6 Weight Status Overweight GI Symptoms GI Symptoms None Last BM 06/15 Difficult in: None Food Allergies No Skin Integrity/Comment: latoya smalls 17 Current %PO Good (75-100%) Estimated Nutritional Goals BEE in Kcals: Using Current wt Calories/Kcals/Kg 23-27 Kcals Calculated 1990-4019 Protein: Using Current wt Protein g/k.8-1 Protein Calculated 62-77 g Fluid: ml 5906-8752 (1 ml/kcal) Nutritional Problem 1. Problem Problem altered nutrition related lab values Etiology hyperglycemia, endocrine dysfunction Signs/Symptoms: POC 108-126 Malnutrition Alert Is there a minimum of two criteria No selected? Query Text:Check all the applicable criteria. A minimum of two criteria are recommended for diagnosis of either severe or non-severe malnutrition. Malnutrition Related to Morbid Obesity Malnutrition related to morbid obesity No Intervention/Recommendation Comments 1. Continue with [facility] soft chopped, EMILY, CCHO diet as ordered 2. Monitor PO intake, wt, labs and skin integrity 3. F/U as moderate risk in 3-5 days, 06/20-14 Expected Outcomes/Goals Expected Outcomes/Goals 1. PO intake to meet at least 75% of all meals 2. Wt stability, skin to remain intact, and nutrition related labs to approach normal limits Reviewed by Sugey Siu RD
[2018-06-17] MEDS ORDERED: Menthol/Zinc Oxide Oint 113gm Tube TP PRN (23:10)
[2018-06-18] MEDS ORDERED: Menthol/Zinc Oxide Oint 113gm Tube TP PRN (06:00)
[2018-06-18] MEDS: INSULIN ASPART SLIDING SCALE 100 UNITS/ML UNIT SUBQ SCH ×4 (06:36→21:31)
[2018-06-18] MEDS: Multivitamin Tab PO SCH (09:42)
--- NOTE | 2018-06-18 14:49 | General Progress Note ---
Subjective - Review of Systems Service Date: 06/18/18 Subjective: resting comfortably in bed non participatory Objective - Results Result Diagrams: 06/14/18 17:19 06/14/18 17:19 Recent Labs: Laboratory Last Values WBC 12.3 Th/cmm (4.8-10.8) H 06/14/18 17:19 RBC 3.82 Mil/cmm (3.80-5.20) 06/14/18 17:19 Hgb 12.1 gm/dL (12-16) 06/14/18 17:19 Hct 36.8 % (41.0-60) L 06/14/18 17:19 MCV 96.4 fl (81-100) 06/14/18 17:19 MCH 31.7 pg (27.0-31.0) H 06/14/18 17:19 MCHC Differential 32.9 pg (28.0-36.0) 06/14/18 17:19 RDW 14.3 % (11.5-20.0) 06/14/18 17:19 Plt Count 375 Th/cmm (150-400) 06/14/18 17:19 MPV 9.2 fl 06/14/18 17:19 Neutrophils % 50.0 % (40.0-80.0) 06/14/18 17:19 Lymphocytes % 39.5 % (20.0-50.0) 06/14/18 17:19 Monocytes % 6.3 % (2.0-10.0) 06/14/18 17:19 Eosinophils % 3.2 % (0.0-5.0) 06/14/18 17:19 Basophils % 1.0 % (0.0-2.0) 06/14/18 17:19 Sodium 142 mEq/L (136-145) 06/14/18 17:19 Potassium 3.6 mEq/L (3.5-5.1) 06/14/18 17:19 Chloride 106 mEq/L (98-107) 06/14/18 17:19 Carbon Dioxide 26.2 mEq/L (21.0-31.0) 06/14/18 17:19 Anion Gap 13.4 (7.0-16.0) 06/14/18 17:19 BUN 25 mg/dL (7-25) 06/14/18 17:19 Creatinine 1.0 mg/dL (0.6-1.2) 06/14/18 17:19 Est GFR ( Amer) TNP 06/14/18 17:19 Est GFR (Non-Af Amer) TNP 06/14/18 17:19 BUN/Creatinine Ratio 25.0 06/14/18 17:19 Glucose 118 mg/dL (70-105) H 06/14/18 17:19 POC Glucose 127 MG/DL (70 - 105) H 06/18/18 11:29 Calcium 9.9 mg/dL (8.6-10.3) 06/14/18 17:19 Total Bilirubin 0.3 mg/dL (0.3-1.0) 06/14/18 17:19 AST 15 U/L (13-39) 06/14/18 17:19 ALT 13 U/L (7-52) 06/14/18 17:19 Alkaline Phosphatase 72 U/L (34-104) 06/14/18 17:19 Troponin I 0.01 ng/mL (0.01-0.05) 06/14/18 17:19 Total Protein 7.6 gm/dL (6.0-8.3) 06/14/18 17:19 Albumin 4.0 gm/dL (3.7-5.3) 06/14/18 17:19 Globulin 3.6 gm/dL 06/14/18 17:19 Albumin/Globulin Ratio 1.1 (1.0-1.8) 06/14/18 17:19 Triglycerides 189 mg/dL (<150) H 06/15/18 06:05 Cholesterol 200 mg/dL (<200) 06/15/18 06:05 LDL Cholesterol Direct 143 mg/dL (75-193) 06/15/18 06:05 HDL Cholesterol 40 mg/dL (23-92) 06/15/18 06:05 TSH 0.48 uIU/ml (0.34-5.60) 06/14/18 17:19 Salicylates < 25.0 mg/L (30.0-100.0) L 06/14/18 17:19 Acetaminophen < 10.0 ug/mL (10.0-30.0) L 06/14/18 17:19 Ethyl Alcohol < 10 mg/dL (0-10) 06/14/18 17:19 RPR NONREACTIVE (NONREACTIVE) 06/14/18 17:19 - Physical Exam Vitals and I&O: Vital Signs Temp 96.9 F 06/18/18 05:38 Pulse 64 06/18/18 09:43 Resp 18 06/18/18 05:38 BP 160/80 06/18/18 09:43 Pulse Ox 98 06/18/18 05:38 Intake & Output 06/17/18 06/18/18 06/18/18 18:59 06:59 18:59 Intake Total 860 Balance 860 Intake: Oral 860 Other: # Voids 3 # Bowel Movements 0 Stool Characteristics Soft Soft Active Medications: Current Medications Acetaminophen (Tylenol) 650 mg PO Q4HR PRN PRN Reason: Mild Pain / Temp above 100 Stop: 08/13/18 20:40 Last Admin: 06/18/18 13:25 Dose: 650 mg Al Hydrox/Mg Hydrox/Simethicone (Maalox) 30 ml PO Q4HR PRN PRN Reason: GI DISTRESS Stop: 08/13/18 20:40 Amlodipine Besylate (Norvasc) 10 mg PO DAILY [facility] OF [facility] Stop: 08/14/18 08:59 Last Admin: 06/18/18 09:43 Dose: 10 mg Calamine/Phenol (Calmoseptine) 1 appl TP PRN PRN PRN Reason: IAD Stop: 08/17/18 05:59 Docusate Sodium (Colace) 100 mg PO BID [facility] Stop: 08/14/18 08:59 Last Admin: 06/18/18 09:42 Dose: 100 mg Heparin Sodium (Porcine) (Heparin) 5,000 units SUBQ Q12HR [facility] Stop: 08/13/18 21:59 Last Admin: 06/18/18 09:42 Dose: 5,000 units Insulin Aspart (Novolog Insulin Sliding Scale) 0 units SUBQ ACHS [facility]; Protocol Stop: 08/13/18 20:59 Last Admin: 06/18/18 11:33 Dose: Not Given Lorazepam (Ativan) 0.5 mg PO Q4H PRN; Protocol PRN Reason: Anxiety Stop: 08/13/18 20:34 Last Admin: 06/18/18 13:25 Dose: 0.5 mg Magnesium Hydroxide (Milk Of Magnesia) 30 ml PO Q4H PRN PRN Reason: Constipation Stop: 08/13/18 20:34 Metformin HCl (Glucophage) 500 mg PO BID [facility] Stop: 08/14/18 08:59 Last Admin: 06/18/18 09:42 Dose: 500 mg Mirtazapine (Remeron) 7.5 mg PO HS [facility]; Protocol Stop: 08/14/18 20:59 Last Admin: 06/17/18 21:08 Dose: 7.5 mg Multivitamins/Vitamin C (Theragran) 1 tab PO DAILY [facility] Stop: 08/14/18 08:59 Last Admin: 06/18/18 09:42 Dose: 1 tab Quetiapine Fumarate (Seroquel) 25 mg PO BID [facility]; Protocol Stop: 08/14/18 08:59 Last Admin: 06/18/18 09:42 Dose: 25 mg Quetiapine Fumarate (Seroquel) 100 mg PO HS [facility]; Protocol Stop: 08/13/18 20:59 Last Admin: 06/17/18 21:09 Dose: 100 mg Zolpidem Tartrate (Ambien) 5 mg PO HS PRN PRN Reason: Insomnia Stop: 08/13/18 20:40 Last Admin: 06/17/18 21:09 Dose: 5 mg General: No acute distress HEENT: Atraumatic, EOMI Neck: Supple, JVD, Thyromegaly Cardiovascular: Regular rate, Normal S1, Normal S2 Lungs: Clear to auscultation Abdomen: Bowel sounds, Soft Assessment/Plan - Problem List Patient Problems: All Active Problems INCREASED AGITATION AND YELLING (Acute) - Assessment Assessment: 1.DM. 2.HTN. 3.HYPERLIPIDEMIA. 4.DEMENTIA. - Plan Plan: continue current treatment Nutritional Asmnt/Malnutr-PDOC - Dietary Evaluation Malnutrition Findings (Please click <Entered> for more info): Nutritional Asmnt/Malnutrition Start: 06/17/18 12: 46 Text: Status: Complete Freq: Protocol: Document 06/17/18 12:46 DAYANNA (Rec: 06/17/18 12:55 DAYANNA [email or web address]) Nutritional Asmnt/Malnutrition Patient General Information Nutritional Screening Moderate Risk Diagnosis psychosis Pertinent Medical Hx/Surgical Hx HTN, DM, hyperlipidemia, dementia, bipolar disorder, psychosis, PUD/GERD, ESRD Subjective Information Pt sleeping at time of visit. Nursing noted PO intake: ~75%. Current Diet Order/ Nutrition Support [facility] soft chopped, EMILY, CCHO Pertinent Medications colace, heparin, novolog, metformin, remeron, theragran, seroquel Pertinent Labs 06/17: POC 108-126 06/16: POC 127-129 06/14 glucose 118 Nutritional Hx/Data Height 1.7 m Height (Calculated Centimeters) 170.2 Current Weight (lbs) 77.111 kg Weight (Calculated Kilograms) 77.1 Weight (Calculated Grams) 58057.7 [place] Body Weight 135 lb Body Mass Index (BMI) 26.6 Weight Status Overweight GI Symptoms GI Symptoms None Last BM 06/15 Difficult in: None Food Allergies No Skin Integrity/Comment: intact, latoya 17 Current %PO Good (75-100%) Estimated Nutritional Goals BEE in Kcals: Using Current wt Calories/Kcals/Kg 23-27 Kcals Calculated 9627-4788 Protein: Using Current wt Protein g/k.8-1 Protein Calculated 62-77 g Fluid: ml 0855-7650 (1 ml/kcal) Nutritional Problem 1. Problem Problem altered nutrition related lab values Etiology hyperglycemia, endocrine dysfunction Signs/Symptoms: POC 108-126 Malnutrition Alert Is there a minimum of two criteria No selected? Query Text:Check all the applicable criteria. A minimum of two criteria are recommended for diagnosis of either severe or non-severe malnutrition. Malnutrition Related to Morbid Obesity Malnutrition related to morbid obesity No Intervention/Recommendation Comments 1. Continue with [facility] soft chopped, EMILY, CCHO diet as ordered 2. Monitor PO intake, wt, labs and skin integrity 3. F/U as moderate risk in 3-5 days, 06/20- Expected Outcomes/Goals Expected Outcomes/Goals 1. PO intake to meet at least 75% of all meals 2. Wt stability, skin to remain intact, and nutrition related labs to approach normal limits Reviewed by Sugey Siu RD
[2018-06-19] MEDS: INSULIN ASPART SLIDING SCALE 100 UNITS/ML UNIT SUBQ SCH ×4 (06:35→21:07)
[2018-06-19] MEDS: Multivitamin Tab PO SCH (08:53)
--- NOTE | 2018-06-19 10:12 | Progress Notes ---
DATE: 06/18/2018 SUBJECTIVE: The patient was seen and evaluated. The patient's chart reviewed. A 72-year-old female. She was initially brought in here, presented with psychotic, disorganized, confused and making nonsensical comments and needing a lot of redirection today. Medications were reviewed. She is currently on ____, Colace, heparin, Ativan, Remeron, Seroquel. Nursing staff reporting no side effects of the medications. Today on [id number] evaluation, the patient has been yelling, screaming, responding heavily. She had ____ medications yesterday of the Haldol and Benadryl. No redirection upon interview. ASSESSMENT AND PLAN: The patient is a 72-year-old female, severely disorganized. We will continue with the current medication regimen. To continue taking with the patient's ongoing severe psychotic symptoms. We will be obtaining more collateral baseline information. JOB# [id number]
--- NOTE | 2018-06-19 16:36 | General Progress Note ---
Subjective - Review of Systems Service Date: 06/19/18 Subjective: resting comfortably in bed non participatory Objective - Results Result Diagrams: 06/14/18 17:19 06/14/18 17:19 Recent Labs: Laboratory Last Values WBC 12.3 Th/cmm (4.8-10.8) H 06/14/18 17:19 RBC 3.82 Mil/cmm (3.80-5.20) 06/14/18 17:19 Hgb 12.1 gm/dL (12-16) 06/14/18 17:19 Hct 36.8 % (41.0-60) L 06/14/18 17:19 MCV 96.4 fl (81-100) 06/14/18 17:19 MCH 31.7 pg (27.0-31.0) H 06/14/18 17:19 MCHC Differential 32.9 pg (28.0-36.0) 06/14/18 17:19 RDW 14.3 % (11.5-20.0) 06/14/18 17:19 Plt Count 375 Th/cmm (150-400) 06/14/18 17:19 MPV 9.2 fl 06/14/18 17:19 Neutrophils % 50.0 % (40.0-80.0) 06/14/18 17:19 Lymphocytes % 39.5 % (20.0-50.0) 06/14/18 17:19 Monocytes % 6.3 % (2.0-10.0) 06/14/18 17:19 Eosinophils % 3.2 % (0.0-5.0) 06/14/18 17:19 Basophils % 1.0 % (0.0-2.0) 06/14/18 17:19 Sodium 142 mEq/L (136-145) 06/14/18 17:19 Potassium 3.6 mEq/L (3.5-5.1) 06/14/18 17:19 Chloride 106 mEq/L (98-107) 06/14/18 17:19 Carbon Dioxide 26.2 mEq/L (21.0-31.0) 06/14/18 17:19 Anion Gap 13.4 (7.0-16.0) 06/14/18 17:19 BUN 25 mg/dL (7-25) 06/14/18 17:19 Creatinine 1.0 mg/dL (0.6-1.2) 06/14/18 17:19 Est GFR ( Amer) TNP 06/14/18 17:19 Est GFR (Non-Af Amer) TNP 06/14/18 17:19 BUN/Creatinine Ratio 25.0 06/14/18 17:19 Glucose 118 mg/dL (70-105) H 06/14/18 17:19 POC Glucose 130 MG/DL (70 - 105) H 06/19/18 12:07 Calcium 9.9 mg/dL (8.6-10.3) 06/14/18 17:19 Total Bilirubin 0.3 mg/dL (0.3-1.0) 06/14/18 17:19 AST 15 U/L (13-39) 06/14/18 17:19 ALT 13 U/L (7-52) 06/14/18 17:19 Alkaline Phosphatase 72 U/L (34-104) 06/14/18 17:19 Troponin I 0.01 ng/mL (0.01-0.05) 06/14/18 17:19 Total Protein 7.6 gm/dL (6.0-8.3) 06/14/18 17:19 Albumin 4.0 gm/dL (3.7-5.3) 06/14/18 17:19 Globulin 3.6 gm/dL 06/14/18 17:19 Albumin/Globulin Ratio 1.1 (1.0-1.8) 06/14/18 17:19 Triglycerides 189 mg/dL (<150) H 06/15/18 06:05 Cholesterol 200 mg/dL (<200) 06/15/18 06:05 LDL Cholesterol Direct 143 mg/dL (75-193) 06/15/18 06:05 HDL Cholesterol 40 mg/dL (23-92) 06/15/18 06:05 TSH 0.48 uIU/ml (0.34-5.60) 06/14/18 17:19 Salicylates < 25.0 mg/L (30.0-100.0) L 06/14/18 17:19 Acetaminophen < 10.0 ug/mL (10.0-30.0) L 06/14/18 17:19 Ethyl Alcohol < 10 mg/dL (0-10) 06/14/18 17:19 RPR NONREACTIVE (NONREACTIVE) 06/14/18 17:19 - Physical Exam Vitals and I&O: Vital Signs Temp 97.9 F 06/19/18 14:00 Pulse 105 06/19/18 14:00 Resp 20 06/19/18 14:00 BP 112/56 06/19/18 14:00 Pulse Ox 95 06/19/18 14:00 Intake & Output 06/18/18 06/19/18 06/19/18 18:59 06:59 18:59 Intake Total 240 Output Total 1 Balance 239 Intake: Oral 240 Output: Urine/Stool Mix 1 Other: # Voids 1 Stool Characteristics Soft Soft Active Medications: Current Medications Acetaminophen (Tylenol) 650 mg PO Q4HR PRN PRN Reason: Mild Pain / Temp above 100 Stop: 08/13/18 20:40 Last Admin: 06/18/18 13:25 Dose: 650 mg Al Hydrox/Mg Hydrox/Simethicone (Maalox) 30 ml PO Q4HR PRN PRN Reason: GI DISTRESS Stop: 08/13/18 20:40 Amlodipine Besylate (Norvasc) 10 mg PO DAILY [facility] Stop: 08/14/18 08:59 Last Admin: 06/19/18 09:08 Dose: 10 mg Calamine/Phenol (Calmoseptine) 1 appl TP PRN PRN PRN Reason: IAD Stop: 08/17/18 05:59 Last Admin: 06/18/18 21:02 Dose: 1 appl Docusate Sodium (Colace) 100 mg PO BID [facility] Stop: 08/14/18 08:59 Last Admin: 06/19/18 16:23 Dose: 100 mg Heparin Sodium (Porcine) (Heparin) 5,000 units SUBQ Q12HR [facility] Stop: 08/13/18 21:59 Last Admin: 06/19/18 08:53 Dose: 5,000 units Insulin Aspart (Novolog Insulin Sliding Scale) 0 units SUBQ ACHS [facility]; Protocol Stop: 08/13/18 20:59 Last Admin: 06/19/18 12:11 Dose: Not Given Lorazepam (Ativan) 0.5 mg PO Q4H PRN; Protocol PRN Reason: Anxiety Stop: 08/13/18 20:34 Last Admin: 06/19/18 14:09 Dose: 0.5 mg Magnesium Hydroxide (Milk Of Magnesia) 30 ml PO Q4H PRN PRN Reason: Constipation Stop: 08/13/18 20:34 Metformin HCl (Glucophage) 500 mg PO BID [facility] Stop: 08/14/18 08:59 Last Admin: 06/19/18 16:23 Dose: 500 mg Mirtazapine (Remeron) 7.5 mg PO HS [facility]; Protocol Stop: 08/14/18 20:59 Last Admin: 06/18/18 21:00 Dose: 7.5 mg Multivitamins/Vitamin C (Theragran) 1 tab PO DAILY [facility] Stop: 08/14/18 08:59 Last Admin: 06/19/18 08:53 Dose: 1 tab Quetiapine Fumarate (Seroquel) 25 mg PO BID [facility]; Protocol Stop: 08/14/18 08:59 Last Admin: 06/19/18 16:23 Dose: 25 mg Quetiapine Fumarate (Seroquel) 100 mg PO HS [facility]; Protocol Stop: 08/13/18 20:59 Last Admin: 06/18/18 21:00 Dose: 100 mg Zolpidem Tartrate (Ambien) 5 mg PO HS PRN PRN Reason: Insomnia Stop: 08/13/18 20:40 Last Admin: 06/18/18 23:16 Dose: 5 mg General: No acute distress HEENT: Atraumatic, EOMI Neck: Supple, JVD, Thyromegaly Cardiovascular: Regular rate, Normal S1, Normal S2 Lungs: Clear to auscultation Abdomen: Bowel sounds, Soft Assessment/Plan - Problem List Patient Problems: All Active Problems INCREASED AGITATION AND YELLING (Acute) - Assessment Assessment: 1.DM. 2.HTN. 3.HYPERLIPIDEMIA. 4.DEMENTIA. - Plan Plan: continue current treatment Nutritional Asmnt/Malnutr-PDOC - Dietary Evaluation Malnutrition Findings (Please click <Entered> for more info): Nutritional Asmnt/Malnutrition Start: 06/17/18 12: 46 Text: Status: Complete Freq: Protocol: Document 06/17/18 12:46 DAYANNA (Rec: 06/17/18 12:55 DAYANNA [email or web address]) Nutritional Asmnt/Malnutrition Patient General Information Nutritional Screening Moderate Risk Diagnosis psychosis Pertinent Medical Hx/Surgical Hx HTN, DM, hyperlipidemia, dementia, bipolar disorder, psychosis, PUD/GERD, ESRD Subjective Information Pt sleeping at time of visit. Nursing noted PO intake: ~75%. Current Diet Order/ Nutrition Support [facility] soft chopped, EMILY, CCHO Pertinent Medications colace, heparin, novolog, metformin, remeron, theragran, seroquel Pertinent Labs 06/17: POC 108-126 06/16: POC 127-129 06/14 glucose 118 Nutritional Hx/Data Height 1.7 m Height (Calculated Centimeters) 170.2 Current Weight (lbs) 77.111 kg Weight (Calculated Kilograms) 77.1 Weight (Calculated Grams) 85404.7 [place] Body Weight 135 lb Body Mass Index (BMI) 26.6 Weight Status Overweight GI Symptoms GI Symptoms None Last BM 06/15 Difficult in: None Food Allergies No Skin Integrity/Comment: latoya smalls 17 Current %PO Good (75-100%) Estimated Nutritional Goals BEE in Kcals: Using Current wt Calories/Kcals/Kg 23-27 Kcals Calculated 2850-3233 Protein: Using Current wt Protein g/k.8-1 Protein Calculated 62-77 g Fluid: ml 4693-7570 (1 ml/kcal) Nutritional Problem 1. Problem Problem altered nutrition related lab values Etiology hyperglycemia, endocrine dysfunction Signs/Symptoms: POC 108-126 Malnutrition Alert Is there a minimum of two criteria No selected? Query Text:Check all the applicable criteria. A minimum of two criteria are recommended for diagnosis of either severe or non-severe malnutrition. Malnutrition Related to Morbid Obesity Malnutrition related to morbid obesity No Intervention/Recommendation Comments 1. Continue with [facility] soft chopped, EMILY, CCHO diet as ordered 2. Monitor PO intake, wt, labs and skin integrity 3. F/U as moderate risk in 3-5 days, 06/20-14 Expected Outcomes/Goals Expected Outcomes/Goals 1. PO intake to meet at least 75% of all meals 2. Wt stability, skin to remain intact, and nutrition related labs to approach normal limits Reviewed by Sugey Siu RD
--- NOTE | 2018-06-20 04:19 | Progress Notes ---
DATE: 06/19/2018 SUBJECTIVE: The patient was seen and evaluated. The patient's chart reviewed. Covering for Dr. Regan. Today on [id number], the patient continues to respond heavily on voices, just screaming, yelling and disengaged in the interview. MENTAL STATUS EXAMINATION: Responding heavily on voices, disengaged. ASSESSMENT AND PLAN: We will continue with current primary psychiatrist treatment plan and goals. Medication recently adjusted to continue to target the patient's auditory hallucinations. We will continue monitoring and evaluating. JOB# [id number]
[2018-06-20] MEDS: INSULIN ASPART SLIDING SCALE 100 UNITS/ML UNIT SUBQ SCH ×4 (06:31→20:20)
[2018-06-20] MEDS: Multivitamin Tab PO SCH (08:50)
--- NOTE | 2018-06-20 20:28 | Internal Medicine Prog Note ---
Internal Medicine Subjective - Subjective Service Date: 06/20/18 Patient seen and examined:: without staff Patient is:: awake, verbal, in bed, talking, confused Per staff patient has:: no adverse event Internal Medicine Objective - Results Result Diagrams: 06/14/18 17:19 06/14/18 17:19 Recent Labs: Laboratory Last Values WBC 12.3 Th/cmm (4.8-10.8) H 06/14/18 17:19 RBC 3.82 Mil/cmm (3.80-5.20) 06/14/18 17:19 Hgb 12.1 gm/dL (12-16) 06/14/18 17:19 Hct 36.8 % (41.0-60) L 06/14/18 17:19 MCV 96.4 fl (81-100) 06/14/18 17:19 MCH 31.7 pg (27.0-31.0) H 06/14/18 17:19 MCHC Differential 32.9 pg (28.0-36.0) 06/14/18 17:19 RDW 14.3 % (11.5-20.0) 06/14/18 17:19 Plt Count 375 Th/cmm (150-400) 06/14/18 17:19 MPV 9.2 fl 06/14/18 17:19 Neutrophils % 50.0 % (40.0-80.0) 06/14/18 17:19 Lymphocytes % 39.5 % (20.0-50.0) 06/14/18 17:19 Monocytes % 6.3 % (2.0-10.0) 06/14/18 17:19 Eosinophils % 3.2 % (0.0-5.0) 06/14/18 17:19 Basophils % 1.0 % (0.0-2.0) 06/14/18 17:19 Sodium 142 mEq/L (136-145) 06/14/18 17:19 Potassium 3.6 mEq/L (3.5-5.1) 06/14/18 17:19 Chloride 106 mEq/L (98-107) 06/14/18 17:19 Carbon Dioxide 26.2 mEq/L (21.0-31.0) 06/14/18 17:19 Anion Gap 13.4 (7.0-16.0) 06/14/18 17:19 BUN 25 mg/dL (7-25) 06/14/18 17:19 Creatinine 1.0 mg/dL (0.6-1.2) 06/14/18 17:19 Est GFR ( Amer) TNP 06/14/18 17:19 Est GFR (Non-Af Amer) TNP 06/14/18 17:19 BUN/Creatinine Ratio 25.0 06/14/18 17:19 Glucose 118 mg/dL (70-105) H 06/14/18 17:19 POC Glucose 111 MG/DL (70 - 105) H 06/20/18 06:26 Calcium 9.9 mg/dL (8.6-10.3) 06/14/18 17:19 Total Bilirubin 0.3 mg/dL (0.3-1.0) 06/14/18 17:19 AST 15 U/L (13-39) 06/14/18 17:19 ALT 13 U/L (7-52) 06/14/18 17:19 Alkaline Phosphatase 72 U/L (34-104) 06/14/18 17:19 Troponin I 0.01 ng/mL (0.01-0.05) 06/14/18 17:19 Total Protein 7.6 gm/dL (6.0-8.3) 06/14/18 17:19 Albumin 4.0 gm/dL (3.7-5.3) 06/14/18 17:19 Globulin 3.6 gm/dL 06/14/18 17:19 Albumin/Globulin Ratio 1.1 (1.0-1.8) 06/14/18 17:19 Triglycerides 189 mg/dL (<150) H 06/15/18 06:05 Cholesterol 200 mg/dL (<200) 06/15/18 06:05 LDL Cholesterol Direct 143 mg/dL (75-193) 06/15/18 06:05 HDL Cholesterol 40 mg/dL (23-92) 06/15/18 06:05 TSH 0.48 uIU/ml (0.34-5.60) 06/14/18 17:19 Salicylates < 25.0 mg/L (30.0-100.0) L 06/14/18 17:19 Acetaminophen < 10.0 ug/mL (10.0-30.0) L 06/14/18 17:19 Ethyl Alcohol < 10 mg/dL (0-10) 06/14/18 17:19 RPR NONREACTIVE (NONREACTIVE) 06/14/18 17:19 - Physical Exam Vitals and I&O: Vital Signs Temp 98.1 F 06/20/18 20:00 Pulse 88 06/20/18 20:00 Resp 19 06/20/18 20:00 BP 130/60 06/20/18 20:00 Pulse Ox 98 06/20/18 20:00 Intake & Output 06/20/18 06/20/18 06/21/18 06:59 18:59 06:59 Intake Total 240 800 120 Balance 240 800 120 Intake: Oral 240 800 120 Other: # Voids 3 2 # Bowel Movements 0 0 Active Medications: Current Medications Acetaminophen (Tylenol) 650 mg PO Q4HR PRN PRN Reason: Mild Pain / Temp above 100 Stop: 08/13/18 20:40 Last Admin: 06/20/18 17:00 Dose: 650 mg Al Hydrox/Mg Hydrox/Simethicone (Maalox) 30 ml PO Q4HR PRN PRN Reason: GI DISTRESS Stop: 08/13/18 20:40 Amlodipine Besylate (Norvasc) 10 mg PO DAILY [facility] Stop: 08/14/18 08:59 Last Admin: 06/20/18 08:48 Dose: 10 mg Calamine/Phenol (Calmoseptine) 1 appl TP PRN PRN PRN Reason: IAD Stop: 08/17/18 05:59 Last Admin: 06/18/18 21:02 Dose: 1 appl Docusate Sodium (Colace) 100 mg PO BID [facility] Stop: 08/14/18 08:59 Last Admin: 06/20/18 17:00 Dose: 100 mg Heparin Sodium (Porcine) (Heparin) 5,000 units SUBQ Q12HR [facility] Stop: 08/13/18 21:59 Last Admin: 06/20/18 20:20 Dose: 5,000 units Insulin Aspart (Novolog Insulin Sliding Scale) 0 units SUBQ ACHS [facility]; Protocol Stop: 08/13/18 20:59 Last Admin: 06/20/18 20:20 Dose: Not Given Lorazepam (Ativan) 0.5 mg PO Q4H PRN; Protocol PRN Reason: Anxiety Stop: 08/13/18 20:34 Last Admin: 06/20/18 16:59 Dose: 0.5 mg Magnesium Hydroxide (Milk Of Magnesia) 30 ml PO Q4H PRN PRN Reason: Constipation Stop: 08/13/18 20:34 Metformin HCl (Glucophage) 500 mg PO BID [facility] Stop: 08/14/18 08:59 Last Admin: 06/20/18 17:00 Dose: 500 mg Mirtazapine (Remeron) 7.5 mg PO HS [facility]; Protocol Stop: 08/14/18 20:59 Last Admin: 06/20/18 20:19 Dose: 7.5 mg Multivitamins/Vitamin C (Theragran) 1 tab PO DAILY [facility] Stop: 08/14/18 08:59 Last Admin: 06/20/18 08:50 Dose: 1 tab Quetiapine Fumarate (Seroquel) 100 mg PO HS [facility]; Protocol Stop: 08/13/18 20:59 Last Admin: 06/20/18 20:20 Dose: 100 mg Quetiapine Fumarate (Seroquel) 50 mg PO BID [facility]; Protocol Stop: 08/19/18 16:59 Last Admin: 06/20/18 17:00 Dose: 50 mg Zolpidem Tartrate (Ambien) 5 mg PO HS PRN PRN Reason: Insomnia Stop: 08/13/18 20:40 Last Admin: 06/20/18 20:20 Dose: 5 mg General: demented HEENT: NC/AT, PERRLA, EOMI, anicteric sclerae, throat clear Neck: Supple, No JVD, No thyromegaly, +2 carotid pulse wo bruit, No LAD, + JVD Cardiovascular: Normal S1, Normal S2, without murmur Abdomen: soft, non-tender, non-distended Extremities: clear Neurological: no change Internal Medicine Assmt/Plan - Assessment Assessment: 1.DM. 2.HTN. 3.HYPERLIPIDEMIA. 4.DEMENTIA. - Plan Plan: CONTINUE ON CURRENT MEDICATION AND DIET. Nutritional Asmnt/Malnutr-PDOC - Dietary Evaluation Malnutrition Findings (Please click <Entered> for more info): Nutritional Asmnt/Malnutrition Start: 06/17/18 12: 46 Text: Status: Complete Freq: Protocol: Document 06/17/18 12:46 DAYANNA (Rec: 06/17/18 12:55 [facility]NA [email or web address]) Nutritional Asmnt/Malnutrition Patient General Information Nutritional Screening Moderate Risk Diagnosis psychosis Pertinent Medical Hx/Surgical Hx HTN, DM, hyperlipidemia, dementia, bipolar disorder, psychosis, PUD/GERD, ESRD Subjective Information Pt sleeping at time of visit. Nursing noted PO intake: ~75%. Current Diet Order/ Nutrition Support [facility] soft chopped, EMILY, CCHO Pertinent Medications colace, heparin, novolog, metformin, remeron, theragran, seroquel Pertinent Labs 06/17: POC 108-126 06/16: POC 127-129 06/14 glucose 118 Nutritional Hx/Data Height 1.7 m Height (Calculated Centimeters) 170.2 Current Weight (lbs) 77.111 kg Weight (Calculated Kilograms) 77.1 Weight (Calculated Grams) 15488.7 [place] Body Weight 135 lb Body Mass Index (BMI) 26.6 Weight Status Overweight GI Symptoms GI Symptoms None Last BM 06/15 Difficult in: None Food Allergies No Skin Integrity/Comment: latoya smalls 17 Current %PO Good (75-100%) Estimated Nutritional Goals BEE in Kcals: Using Current wt Calories/Kcals/Kg 23-27 Kcals Calculated 7295-9360 Protein: Using Current wt Protein g/k.8-1 Protein Calculated 62-77 g Fluid: ml 5931-8158 (1 ml/kcal) Nutritional Problem 1. Problem Problem altered nutrition related lab values Etiology hyperglycemia, endocrine dysfunction Signs/Symptoms: POC 108-126 Malnutrition Alert Is there a minimum of two criteria No selected? Query Text:Check all the applicable criteria. A minimum of two criteria are recommended for diagnosis of either severe or non-severe malnutrition. Malnutrition Related to Morbid Obesity Malnutrition related to morbid obesity No Intervention/Recommendation Comments 1. Continue with [facility] soft chopped, EMILY, CCHO diet as ordered 2. Monitor PO intake, wt, labs and skin integrity 3. F/U as moderate risk in 3-5 days, 06/20-14 Expected Outcomes/Goals Expected Outcomes/Goals 1. PO intake to meet at least 75% of all meals 2. Wt stability, skin to remain intact, and nutrition related labs to approach normal limits Reviewed by Sugey Siu RD
--- NOTE | 2018-06-20 23:33 | Progress Notes ---
DATE: 06/20/2018 SUBJECTIVE: Case was discussed with staff of the patient, reviewed records. The patient continues to be confused. She continues to have episodes of yelling and screaming. She is in a room by herself in isolation. She continues to have poor insight. She continues to be unable to participate in meaningful conversation. No side effects of the medication, no sedation, no nausea, and no extrapyramidal symptoms. I will be increasing her Seroquel dose from 25 to 50 mg twice a day and so far no side effects of the medication, no sedation, no nausea, and no extrapyramidal symptoms. We will continue to work with the patient in group therapy, milieu therapy, and adjust the medications as needed. [facility]# [id number]
[2018-06-21] MEDS: INSULIN ASPART SLIDING SCALE 100 UNITS/ML UNIT SUBQ SCH ×4 (06:37→20:46)
[2018-06-21] MEDS: Multivitamin Tab PO SCH (10:00)
[2018-06-21] MEDS ORDERED: Haloperidol Lactate 5 mg/mL 1mL Vial ONE (12:03)
[2018-06-21] MEDS ORDERED: Haloperidol Lactate 5 mg/mL 1mL Vial IM STA ×2 (12:30→13:16)
--- NOTE | 2018-06-21 15:54 | Progress Notes ---
DATE: 06/21/2018 Case was discussed with staff of the patient, reviewed records. The patient continues to be yelling and screaming. Continues to be unpredictable, impulsive, needing redirection. Sleeping has to be prompted to do her ADLs, need help with her ADLs demented, confused, unable to make safe plan for self-care. I did increase her Seroquel dose yesterday with no side effects, no sedation, no nausea, no extrapyramidal symptoms. I will make further adjustments to her Seroquel dose and we will continue to work with the patient in group therapy, milieu therapy, adjust medication as needed. JOB# [id number]
--- NOTE | 2018-06-21 20:18 | Internal Medicine Prog Note ---
Internal Medicine Subjective - Subjective Service Date: 06/21/18 Patient seen and examined:: without staff Patient is:: awake, verbal, in bed, talking, confused Per staff patient has:: no adverse event Internal Medicine Objective - Results Result Diagrams: 06/14/18 17:19 06/14/18 17:19 Recent Labs: Laboratory Last Values WBC 12.3 Th/cmm (4.8-10.8) H 06/14/18 17:19 RBC 3.82 Mil/cmm (3.80-5.20) 06/14/18 17:19 Hgb 12.1 gm/dL (12-16) 06/14/18 17:19 Hct 36.8 % (41.0-60) L 06/14/18 17:19 MCV 96.4 fl (81-100) 06/14/18 17:19 MCH 31.7 pg (27.0-31.0) H 06/14/18 17:19 MCHC Differential 32.9 pg (28.0-36.0) 06/14/18 17:19 RDW 14.3 % (11.5-20.0) 06/14/18 17:19 Plt Count 375 Th/cmm (150-400) 06/14/18 17:19 MPV 9.2 fl 06/14/18 17:19 Neutrophils % 50.0 % (40.0-80.0) 06/14/18 17:19 Lymphocytes % 39.5 % (20.0-50.0) 06/14/18 17:19 Monocytes % 6.3 % (2.0-10.0) 06/14/18 17:19 Eosinophils % 3.2 % (0.0-5.0) 06/14/18 17:19 Basophils % 1.0 % (0.0-2.0) 06/14/18 17:19 Sodium 142 mEq/L (136-145) 06/14/18 17:19 Potassium 3.6 mEq/L (3.5-5.1) 06/14/18 17:19 Chloride 106 mEq/L (98-107) 06/14/18 17:19 Carbon Dioxide 26.2 mEq/L (21.0-31.0) 06/14/18 17:19 Anion Gap 13.4 (7.0-16.0) 06/14/18 17:19 BUN 25 mg/dL (7-25) 06/14/18 17:19 Creatinine 1.0 mg/dL (0.6-1.2) 06/14/18 17:19 Est GFR ( Amer) TNP 06/14/18 17:19 Est GFR (Non-Af Amer) TNP 06/14/18 17:19 BUN/Creatinine Ratio 25.0 06/14/18 17:19 Glucose 118 mg/dL (70-105) H 06/14/18 17:19 POC Glucose 130 MG/DL (70 - 105) H 06/21/18 11:54 Calcium 9.9 mg/dL (8.6-10.3) 06/14/18 17:19 Total Bilirubin 0.3 mg/dL (0.3-1.0) 06/14/18 17:19 AST 15 U/L (13-39) 06/14/18 17:19 ALT 13 U/L (7-52) 06/14/18 17:19 Alkaline Phosphatase 72 U/L (34-104) 06/14/18 17:19 Troponin I 0.01 ng/mL (0.01-0.05) 06/14/18 17:19 Total Protein 7.6 gm/dL (6.0-8.3) 06/14/18 17:19 Albumin 4.0 gm/dL (3.7-5.3) 06/14/18 17:19 Globulin 3.6 gm/dL 06/14/18 17:19 Albumin/Globulin Ratio 1.1 (1.0-1.8) 06/14/18 17:19 Triglycerides 189 mg/dL (<150) H 06/15/18 06:05 Cholesterol 200 mg/dL (<200) 06/15/18 06:05 LDL Cholesterol Direct 143 mg/dL (75-193) 06/15/18 06:05 HDL Cholesterol 40 mg/dL (23-92) 06/15/18 06:05 TSH 0.48 uIU/ml (0.34-5.60) 06/14/18 17:19 Salicylates < 25.0 mg/L (30.0-100.0) L 06/14/18 17:19 Acetaminophen < 10.0 ug/mL (10.0-30.0) L 06/14/18 17:19 Ethyl Alcohol < 10 mg/dL (0-10) 06/14/18 17:19 RPR NONREACTIVE (NONREACTIVE) 06/14/18 17:19 - Physical Exam Vitals and I&O: Vital Signs Temp 98.1 F 06/21/18 20:02 Pulse 73 06/21/18 20:02 Resp 18 06/21/18 20:02 BP 129/65 06/21/18 20:02 Pulse Ox 92 06/21/18 20:02 Intake & Output 06/21/18 06/21/18 06/22/18 06:59 18:59 06:59 Intake Total 120 240 Balance 120 240 Intake: Oral 120 240 Other: # Voids 2 3 2 # Bowel Movements 0 1 Active Medications: Current Medications Acetaminophen (Tylenol) 650 mg PO Q4HR PRN PRN Reason: Mild Pain / Temp above 100 Stop: 08/13/18 20:40 Last Admin: 06/20/18 17:00 Dose: 650 mg Al Hydrox/Mg Hydrox/Simethicone (Maalox) 30 ml PO Q4HR PRN PRN Reason: GI DISTRESS Stop: 08/13/18 20:40 Amlodipine Besylate (Norvasc) 10 mg PO DAILY [facility] Stop: 08/14/18 08:59 Last Admin: 06/21/18 09:59 Dose: Not Given Calamine/Phenol (Calmoseptine) 1 appl TP PRN PRN PRN Reason: IAD Stop: 08/17/18 05:59 Last Admin: 06/18/18 21:02 Dose: 1 appl Docusate Sodium (Colace) 100 mg PO BID [facility] Stop: 08/14/18 08:59 Last Admin: 06/21/18 17:30 Dose: Not Given Heparin Sodium (Porcine) (Heparin) 5,000 units SUBQ Q12HR [facility] Stop: 08/13/18 21:59 Last Admin: 06/21/18 09:59 Dose: Not Given Insulin Aspart (Novolog Insulin Sliding Scale) 0 units SUBQ ACHS [facility]; Protocol Stop: 08/13/18 20:59 Last Admin: 06/21/18 17:30 Dose: Not Given Lorazepam (Ativan) 0.5 mg PO Q4H PRN; Protocol PRN Reason: Anxiety Stop: 08/13/18 20:34 Last Admin: 06/21/18 11:50 Dose: 0.5 mg Magnesium Hydroxide (Milk Of Magnesia) 30 ml PO Q4H PRN PRN Reason: Constipation Stop: 08/13/18 20:34 Metformin HCl (Glucophage) 500 mg PO BID [facility] Stop: 08/14/18 08:59 Last Admin: 06/21/18 17:31 Dose: 500 mg Mirtazapine (Remeron) 7.5 mg PO HS [facility]; Protocol Stop: 08/14/18 20:59 Last Admin: 06/20/18 20:19 Dose: 7.5 mg Multivitamins/Vitamin C (Theragran) 1 tab PO DAILY [facility] Stop: 08/14/18 08:59 Last Admin: 06/21/18 10:00 Dose: Not Given Quetiapine Fumarate (Seroquel) 100 mg PO HS [facility]; Protocol Stop: 08/13/18 20:59 Last Admin: 06/20/18 20:20 Dose: 100 mg Quetiapine Fumarate 50 mg/ (Quetiapine Fumarate 25 mg) 75 mg PO BID [facility] Stop: 08/20/18 16:59 Last Admin: 06/21/18 17:31 Dose: 75 mg Zolpidem Tartrate (Ambien) 5 mg PO HS PRN PRN Reason: Insomnia Stop: 08/13/18 20:40 Last Admin: 06/20/18 20:20 Dose: 5 mg General: demented HEENT: NC/AT, PERRLA, EOMI, anicteric sclerae, throat clear Neck: Supple, No JVD, No thyromegaly, +2 carotid pulse wo bruit, No LAD, + JVD Cardiovascular: Normal S1, Normal S2, without murmur Abdomen: soft, non-tender, non-distended Extremities: clear Neurological: no change Internal Medicine Assmt/Plan - Assessment Assessment: 1.DM. 2.HTN. 3.HYPERLIPIDEMIA. 4.DEMENTIA. - Plan Plan: CONTINUE ON CURRENT MEDICATION AND DIET. Nutritional Asmnt/Malnutr-PDOC - Dietary Evaluation Malnutrition Findings (Please click <Entered> for more info): Nutritional Asmnt/Malnutrition Start: 06/17/18 12: 46 Text: Status: Complete Freq: Protocol: Document 06/17/18 12:46 DAYANNA (Rec: 06/17/18 12:55 [email or web address]) Nutritional Asmnt/Malnutrition Patient General Information Nutritional Screening Moderate Risk Diagnosis psychosis Pertinent Medical Hx/Surgical Hx HTN, DM, hyperlipidemia, dementia, bipolar disorder, psychosis, PUD/GERD, ESRD Subjective Information Pt sleeping at time of visit. Nursing noted PO intake: ~75%. Current Diet Order/ Nutrition Support [facility] soft chopped, EMILY, CCHO Pertinent Medications colace, heparin, novolog, metformin, remeron, theragran, seroquel Pertinent Labs 06/17: POC 108-126 06/16: POC 127-129 06/14 glucose 118 Nutritional Hx/Data Height 1.7 m Height (Calculated Centimeters) 170.2 Current Weight (lbs) 77.111 kg Weight (Calculated Kilograms) 77.1 Weight (Calculated Grams) 45499.7 [place] Body Weight 135 lb Body Mass Index (BMI) 26.6 Weight Status Overweight GI Symptoms GI Symptoms None Last BM 06/15 Difficult in: None Food Allergies No Skin Integrity/Comment: latoya smalls 17 Current %PO Good (75-100%) Estimated Nutritional Goals BEE in Kcals: Using Current wt Calories/Kcals/Kg 23-27 Kcals Calculated 5415-1793 Protein: Using Current wt Protein g/k.8-1 Protein Calculated 62-77 g Fluid: ml 4195-0964 (1 ml/kcal) Nutritional Problem 1. Problem Problem altered nutrition related lab values Etiology hyperglycemia, endocrine dysfunction Signs/Symptoms: POC 108-126 Malnutrition Alert Is there a minimum of two criteria No selected? Query Text:Check all the applicable criteria. A minimum of two criteria are recommended for diagnosis of either severe or non-severe malnutrition. Malnutrition Related to Morbid Obesity Malnutrition related to morbid obesity No Intervention/Recommendation Comments 1. Continue with [facility] soft chopped, EMILY, CCHO diet as ordered 2. Monitor PO intake, wt, labs and skin integrity 3. F/U as moderate risk in 3-5 days, 06/20-14 Expected Outcomes/Goals Expected Outcomes/Goals 1. PO intake to meet at least 75% of all meals 2. Wt stability, skin to remain intact, and nutrition related labs to approach normal limits Reviewed by Sugey Siu RD
[2018-06-22] MEDS: INSULIN ASPART SLIDING SCALE 100 UNITS/ML UNIT SUBQ SCH ×4 (06:38→20:49)
[2018-06-22] MEDS: Multivitamin Tab PO SCH (10:11)
--- NOTE | 2018-06-22 15:08 | Progress Notes ---
DATE: 06/22/2018 Case was discussed with staff of the patient, reviewed records. The patient had to be medicated yesterday. She was very agitated. She is demented, confused, unable to make safe plan for self-care or participate in meaningful conversation. Today, she is not yelling and screaming so far. So we will give her time like today if she is not yelling and screaming today and she is not agitated, may be then [facility] and no side effects with the medication. No sedation or nausea. No extrapyramidal symptoms. We will continue the patient in the group therapy, milieu therapy, adjust medications as needed. [facility]# [id number]
--- NOTE | 2018-06-22 20:13 | Internal Medicine Prog Note ---
Internal Medicine Subjective - Subjective Service Date: 06/22/18 Patient seen and examined:: without staff Patient is:: awake, verbal, in bed, talking, confused Per staff patient has:: no adverse event Internal Medicine Objective - Results Result Diagrams: 06/14/18 17:19 06/14/18 17:19 Recent Labs: Laboratory Last Values WBC 12.3 Th/cmm (4.8-10.8) H 06/14/18 17:19 RBC 3.82 Mil/cmm (3.80-5.20) 06/14/18 17:19 Hgb 12.1 gm/dL (12-16) 06/14/18 17:19 Hct 36.8 % (41.0-60) L 06/14/18 17:19 MCV 96.4 fl (81-100) 06/14/18 17:19 MCH 31.7 pg (27.0-31.0) H 06/14/18 17:19 MCHC Differential 32.9 pg (28.0-36.0) 06/14/18 17:19 RDW 14.3 % (11.5-20.0) 06/14/18 17:19 Plt Count 375 Th/cmm (150-400) 06/14/18 17:19 MPV 9.2 fl 06/14/18 17:19 Neutrophils % 50.0 % (40.0-80.0) 06/14/18 17:19 Lymphocytes % 39.5 % (20.0-50.0) 06/14/18 17:19 Monocytes % 6.3 % (2.0-10.0) 06/14/18 17:19 Eosinophils % 3.2 % (0.0-5.0) 06/14/18 17:19 Basophils % 1.0 % (0.0-2.0) 06/14/18 17:19 Sodium 142 mEq/L (136-145) 06/14/18 17:19 Potassium 3.6 mEq/L (3.5-5.1) 06/14/18 17:19 Chloride 106 mEq/L (98-107) 06/14/18 17:19 Carbon Dioxide 26.2 mEq/L (21.0-31.0) 06/14/18 17:19 Anion Gap 13.4 (7.0-16.0) 06/14/18 17:19 BUN 25 mg/dL (7-25) 06/14/18 17:19 Creatinine 1.0 mg/dL (0.6-1.2) 06/14/18 17:19 Est GFR ( Amer) TNP 06/14/18 17:19 Est GFR (Non-Af Amer) TNP 06/14/18 17:19 BUN/Creatinine Ratio 25.0 06/14/18 17:19 Glucose 118 mg/dL (70-105) H 06/14/18 17:19 POC Glucose 131 MG/DL (70 - 105) H 06/22/18 12:02 Calcium 9.9 mg/dL (8.6-10.3) 06/14/18 17:19 Total Bilirubin 0.3 mg/dL (0.3-1.0) 06/14/18 17:19 AST 15 U/L (13-39) 06/14/18 17:19 ALT 13 U/L (7-52) 06/14/18 17:19 Alkaline Phosphatase 72 U/L (34-104) 06/14/18 17:19 Troponin I 0.01 ng/mL (0.01-0.05) 06/14/18 17:19 Total Protein 7.6 gm/dL (6.0-8.3) 06/14/18 17:19 Albumin 4.0 gm/dL (3.7-5.3) 06/14/18 17:19 Globulin 3.6 gm/dL 06/14/18 17:19 Albumin/Globulin Ratio 1.1 (1.0-1.8) 06/14/18 17:19 Triglycerides 189 mg/dL (<150) H 06/15/18 06:05 Cholesterol 200 mg/dL (<200) 06/15/18 06:05 LDL Cholesterol Direct 143 mg/dL (75-193) 06/15/18 06:05 HDL Cholesterol 40 mg/dL (23-92) 06/15/18 06:05 TSH 0.48 uIU/ml (0.34-5.60) 06/14/18 17:19 Salicylates < 25.0 mg/L (30.0-100.0) L 06/14/18 17:19 Acetaminophen < 10.0 ug/mL (10.0-30.0) L 06/14/18 17:19 Ethyl Alcohol < 10 mg/dL (0-10) 06/14/18 17:19 RPR NONREACTIVE (NONREACTIVE) 06/14/18 17:19 - Physical Exam Vitals and I&O: Vital Signs Temp 97.9 F 06/22/18 14:00 Pulse 69 06/22/18 14:00 Resp 18 06/22/18 14:00 BP 136/70 06/22/18 14:00 Pulse Ox 93 06/22/18 14:00 Intake & Output 06/22/18 06/22/18 06/23/18 06:59 18:59 06:59 Intake Total 480 1200 Balance 480 1200 Intake: Oral 480 1200 Other: # Voids 2 # Bowel Movements 1 Active Medications: Current Medications Acetaminophen (Tylenol) 650 mg PO Q4HR PRN PRN Reason: Mild Pain / Temp above 100 Stop: 08/13/18 20:40 Last Admin: 06/20/18 17:00 Dose: 650 mg Al Hydrox/Mg Hydrox/Simethicone (Maalox) 30 ml PO Q4HR PRN PRN Reason: GI DISTRESS Stop: 08/13/18 20:40 Amlodipine Besylate (Norvasc) 10 mg PO DAILY [facility] Stop: 08/14/18 08:59 Last Admin: 06/22/18 10:12 Dose: 10 mg Calamine/Phenol (Calmoseptine) 1 appl TP PRN PRN PRN Reason: IAD Stop: 08/17/18 05:59 Last Admin: 06/18/18 21:02 Dose: 1 appl Docusate Sodium (Colace) 100 mg PO BID [facility] Stop: 08/14/18 08:59 Last Admin: 06/22/18 17:14 Dose: 100 mg Heparin Sodium (Porcine) (Heparin) 5,000 units SUBQ Q12HR [facility] Stop: 08/13/18 21:59 Last Admin: 06/22/18 10:13 Dose: 5,000 units Insulin Aspart (Novolog Insulin Sliding Scale) 0 units SUBQ ACHS [facility]; Protocol Stop: 08/13/18 20:59 Last Admin: 06/22/18 18:52 Dose: Not Given Lorazepam (Ativan) 0.5 mg PO Q4H PRN; Protocol PRN Reason: Anxiety Stop: 08/13/18 20:34 Last Admin: 06/22/18 14:00 Dose: 0.5 mg Magnesium Hydroxide (Milk Of Magnesia) 30 ml PO Q4H PRN PRN Reason: Constipation Stop: 08/13/18 20:34 Metformin HCl (Glucophage) 500 mg PO BID [facility] Stop: 08/14/18 08:59 Last Admin: 06/22/18 17:14 Dose: 500 mg Mirtazapine (Remeron) 7.5 mg PO HS [facility]; Protocol Stop: 08/14/18 20:59 Last Admin: 06/21/18 20:37 Dose: 7.5 mg Multivitamins/Vitamin C (Theragran) 1 tab PO DAILY [facility] Stop: 08/14/18 08:59 Last Admin: 06/22/18 10:11 Dose: 1 tab Quetiapine Fumarate (Seroquel) 100 mg PO HS [facility]; Protocol Stop: 08/13/18 20:59 Last Admin: 06/21/18 20:37 Dose: 100 mg Quetiapine Fumarate 50 mg/ (Quetiapine Fumarate 25 mg) 75 mg PO BID [facility] Stop: 08/20/18 16:59 Last Admin: 06/22/18 17:15 Dose: 75 mg Zolpidem Tartrate (Ambien) 5 mg PO HS PRN PRN Reason: Insomnia Stop: 08/13/18 20:40 Last Admin: 06/21/18 20:37 Dose: 5 mg General: demented HEENT: NC/AT, PERRLA, EOMI, anicteric sclerae, throat clear Neck: Supple, No JVD, No thyromegaly, +2 carotid pulse wo bruit, No LAD, + JVD Cardiovascular: Normal S1, Normal S2, without murmur Abdomen: soft, non-tender, non-distended Extremities: clear Neurological: no change Internal Medicine Assmt/Plan - Assessment Assessment: 1.DM. 2.HTN. 3.HYPERLIPIDEMIA. 4.DEMENTIA. - Plan Plan: CONTINUE ON CURRENT MEDICATION AND DIET. Nutritional Asmnt/Malnutr-PDOC - Dietary Evaluation Malnutrition Findings (Please click <Entered> for more info): Nutritional Asmnt/Malnutrition Start: 06/17/18 12: 46 Text: Status: Complete Freq: Protocol: Document 06/17/18 12:46 DAYANNA (Rec: 06/17/18 12:55 [email or web address] [email or web address]) Nutritional Asmnt/Malnutrition Patient General Information Nutritional Screening Moderate Risk Diagnosis psychosis Pertinent Medical Hx/Surgical Hx HTN, DM, hyperlipidemia, dementia, bipolar disorder, psychosis, PUD/GERD, ESRD Subjective Information Pt sleeping at time of visit. Nursing noted PO intake: ~75%. Current Diet Order/ Nutrition Support [facility] soft chopped, EMILY, CCHO Pertinent Medications colace, heparin, novolog, metformin, remeron, theragran, seroquel Pertinent Labs 06/17: POC 108-126 06/16: POC 127-129 06/14 glucose 118 Nutritional Hx/Data Height 1.7 m Height (Calculated Centimeters) 170.2 Current Weight (lbs) 77.111 kg Weight (Calculated Kilograms) 77.1 Weight (Calculated Grams) [address]12.7 [place] Body Weight 135 lb Body Mass Index (BMI) 26.6 Weight Status Overweight GI Symptoms GI Symptoms None Last BM 06/15 Difficult in: None Food Allergies No Skin Integrity/Comment: serina, latoya 17 Current %PO Good (75-100%) Estimated Nutritional Goals BEE in Kcals: Using Current wt Calories/Kcals/Kg 23-27 Kcals Calculated 7058-8335 Protein: Using Current wt Protein g/k.8-1 Protein Calculated 62-77 g Fluid: ml 8643-2323 (1 ml/kcal) Nutritional Problem 1. Problem Problem altered nutrition related lab values Etiology hyperglycemia, endocrine dysfunction Signs/Symptoms: POC 108-126 Malnutrition Alert Is there a minimum of two criteria No selected? Query Text:Check all the applicable criteria. A minimum of two criteria are recommended for diagnosis of either severe or non-severe malnutrition. Malnutrition Related to Morbid Obesity Malnutrition related to morbid obesity No Intervention/Recommendation Comments 1. Continue with [facility] soft chopped, EMILY, CCHO diet as ordered 2. Monitor PO intake, wt, labs and skin integrity 3. F/U as moderate risk in 3-5 days, 06/20-14 Expected Outcomes/Goals Expected Outcomes/Goals 1. PO intake to meet at least 75% of all meals 2. Wt stability, skin to remain intact, and nutrition related labs to approach normal limits Reviewed by Sugey Siu RD
[2018-06-23] MEDS: INSULIN ASPART SLIDING SCALE 100 UNITS/ML UNIT SUBQ SCH ×4 (06:33→21:19)
[2018-06-23] MEDS: Multivitamin Tab PO SCH (09:08)
--- NOTE | 2018-06-23 21:04 | Internal Medicine Prog Note ---
Internal Medicine Subjective - Subjective Service Date: 06/23/18 Patient seen and examined:: with staff Patient is:: awake, verbal, in bed, talking, confused Per staff patient has:: no adverse event Internal Medicine Objective - Results Result Diagrams: 06/14/18 17:19 06/14/18 17:19 Recent Labs: Laboratory Last Values WBC 12.3 Th/cmm (4.8-10.8) H 06/14/18 17:19 RBC 3.82 Mil/cmm (3.80-5.20) 06/14/18 17:19 Hgb 12.1 gm/dL (12-16) 06/14/18 17:19 Hct 36.8 % (41.0-60) L 06/14/18 17:19 MCV 96.4 fl (81-100) 06/14/18 17:19 MCH 31.7 pg (27.0-31.0) H 06/14/18 17:19 MCHC Differential 32.9 pg (28.0-36.0) 06/14/18 17:19 RDW 14.3 % (11.5-20.0) 06/14/18 17:19 Plt Count 375 Th/cmm (150-400) 06/14/18 17:19 MPV 9.2 fl 06/14/18 17:19 Neutrophils % 50.0 % (40.0-80.0) 06/14/18 17:19 Lymphocytes % 39.5 % (20.0-50.0) 06/14/18 17:19 Monocytes % 6.3 % (2.0-10.0) 06/14/18 17:19 Eosinophils % 3.2 % (0.0-5.0) 06/14/18 17:19 Basophils % 1.0 % (0.0-2.0) 06/14/18 17:19 Sodium 142 mEq/L (136-145) 06/14/18 17:19 Potassium 3.6 mEq/L (3.5-5.1) 06/14/18 17:19 Chloride 106 mEq/L (98-107) 06/14/18 17:19 Carbon Dioxide 26.2 mEq/L (21.0-31.0) 06/14/18 17:19 Anion Gap 13.4 (7.0-16.0) 06/14/18 17:19 BUN 25 mg/dL (7-25) 06/14/18 17:19 Creatinine 1.0 mg/dL (0.6-1.2) 06/14/18 17:19 Est GFR ( Amer) TNP 06/14/18 17:19 Est GFR (Non-Af Amer) TNP 06/14/18 17:19 BUN/Creatinine Ratio 25.0 06/14/18 17:19 Glucose 118 mg/dL (70-105) H 06/14/18 17:19 POC Glucose 144 MG/DL (70 - 105) H 06/23/18 19:53 Calcium 9.9 mg/dL (8.6-10.3) 06/14/18 17:19 Total Bilirubin 0.3 mg/dL (0.3-1.0) 06/14/18 17:19 AST 15 U/L (13-39) 06/14/18 17:19 ALT 13 U/L (7-52) 06/14/18 17:19 Alkaline Phosphatase 72 U/L (34-104) 06/14/18 17:19 Troponin I 0.01 ng/mL (0.01-0.05) 06/14/18 17:19 Total Protein 7.6 gm/dL (6.0-8.3) 06/14/18 17:19 Albumin 4.0 gm/dL (3.7-5.3) 06/14/18 17:19 Globulin 3.6 gm/dL 06/14/18 17:19 Albumin/Globulin Ratio 1.1 (1.0-1.8) 06/14/18 17:19 Triglycerides 189 mg/dL (<150) H 06/15/18 06:05 Cholesterol 200 mg/dL (<200) 06/15/18 06:05 LDL Cholesterol Direct 143 mg/dL (75-193) 06/15/18 06:05 HDL Cholesterol 40 mg/dL (23-92) 06/15/18 06:05 TSH 0.48 uIU/ml (0.34-5.60) 06/14/18 17:19 Salicylates < 25.0 mg/L (30.0-100.0) L 06/14/18 17:19 Acetaminophen < 10.0 ug/mL (10.0-30.0) L 06/14/18 17:19 Ethyl Alcohol < 10 mg/dL (0-10) 06/14/18 17:19 RPR NONREACTIVE (NONREACTIVE) 06/14/18 17:19 - Physical Exam Vitals and I&O: Vital Signs Temp 97.7 F 06/23/18 14:00 Pulse 81 06/23/18 14:00 Resp 20 06/23/18 14:00 BP 139/58 06/23/18 14:00 Pulse Ox 96 06/23/18 14:00 Intake & Output 06/23/18 06/23/18 06/24/18 06:59 18:59 06:59 Intake Total 120 1200 240 Balance 120 1200 240 Intake: Oral 120 1200 240 Other: # Voids 3 2 # Bowel Movements 1 Active Medications: Current Medications Acetaminophen (Tylenol) 650 mg PO Q4HR PRN PRN Reason: Mild Pain / Temp above 100 Stop: 08/13/18 20:40 Last Admin: 06/20/18 17:00 Dose: 650 mg Al Hydrox/Mg Hydrox/Simethicone (Maalox) 30 ml PO Q4HR PRN PRN Reason: GI DISTRESS Stop: 08/13/18 20:40 Amlodipine Besylate (Norvasc) 10 mg PO DAILY [facility] Stop: 08/14/18 08:59 Last Admin: 06/23/18 09:08 Dose: 10 mg Calamine/Phenol (Calmoseptine) 1 appl TP PRN PRN PRN Reason: IAD Stop: 08/17/18 05:59 Last Admin: 06/18/18 21:02 Dose: 1 appl Docusate Sodium (Colace) 100 mg PO BID [facility] Stop: 08/14/18 08:59 Last Admin: 06/23/18 16:48 Dose: 100 mg Heparin Sodium (Porcine) (Heparin) 5,000 units SUBQ Q12HR [facility] Stop: 08/13/18 21:59 Last Admin: 06/23/18 09:08 Dose: 5,000 units Insulin Aspart (Novolog Insulin Sliding Scale) 0 units SUBQ ACHS [facility]; Protocol Stop: 08/13/18 20:59 Last Admin: 06/23/18 16:48 Dose: Not Given Lorazepam (Ativan) 0.5 mg PO Q4H PRN; Protocol PRN Reason: Anxiety Stop: 08/13/18 20:34 Last Admin: 06/23/18 09:27 Dose: 0.5 mg Magnesium Hydroxide (Milk Of Magnesia) 30 ml PO Q4H PRN PRN Reason: Constipation Stop: 08/13/18 20:34 Metformin HCl (Glucophage) 500 mg PO BID [facility] Stop: 08/14/18 08:59 Last Admin: 06/23/18 16:48 Dose: 500 mg Mirtazapine (Remeron) 7.5 mg PO HS [facility]; Protocol Stop: 08/14/18 20:59 Last Admin: 06/22/18 20:49 Dose: 7.5 mg Multivitamins/Vitamin C (Theragran) 1 tab PO DAILY [facility] Stop: 08/14/18 08:59 Last Admin: 06/23/18 09:08 Dose: 1 tab Quetiapine Fumarate (Seroquel) 100 mg PO HS [facility]; Protocol Stop: 08/13/18 20:59 Last Admin: 06/22/18 20:48 Dose: 100 mg Quetiapine Fumarate (Seroquel) 100 mg PO BID [facility] Stop: 08/22/18 16:59 Last Admin: 06/23/18 16:51 Dose: 100 mg Zolpidem Tartrate (Ambien) 5 mg PO HS PRN PRN Reason: Insomnia Stop: 08/13/18 20:40 Last Admin: 06/23/18 00:22 Dose: 5 mg General: demented HEENT: NC/AT, PERRLA, EOMI, anicteric sclerae, throat clear Neck: Supple, No JVD, No thyromegaly, +2 carotid pulse wo bruit, No LAD, + JVD Cardiovascular: Normal S1, Normal S2, without murmur Abdomen: soft, non-tender, non-distended Extremities: clear Neurological: no change Internal Medicine Assmt/Plan - Assessment Assessment: 1.DM. 2.HTN. 3.HYPERLIPIDEMIA. 4.DEMENTIA. - Plan Plan: CONTINUE ON CURRENT MEDICATION AND DIET. Nutritional Asmnt/Malnutr-PDOC - Dietary Evaluation Malnutrition Findings (Please click <Entered> for more info): Nutritional Asmnt/Malnutrition Start: 06/17/18 12: 46 Text: Status: Complete Freq: Protocol: Document 06/17/18 12:46 DAYANNA (Rec: 06/17/18 12:55 DAYANNA [email or web address]) Nutritional Asmnt/Malnutrition Patient General Information Nutritional Screening Moderate Risk Diagnosis psychosis Pertinent Medical Hx/Surgical Hx HTN, DM, hyperlipidemia, dementia, bipolar disorder, psychosis, PUD/GERD, ESRD Subjective Information Pt sleeping at time of visit. Nursing noted PO intake: ~75%. Current Diet Order/ Nutrition Support [facility] soft chopped, EMILY, CCHO Pertinent Medications colace, heparin, novolog, metformin, remeron, theragran, seroquel Pertinent Labs 06/17: POC 108-126 06/16: POC 127-129 06/14 glucose 118 Nutritional Hx/Data Height 1.7 m Height (Calculated Centimeters) 170.2 Current Weight (lbs) 77.111 kg Weight (Calculated Kilograms) 77.1 Weight (Calculated Grams) 79278.7 [place] Body Weight 135 lb Body Mass Index (BMI) 26.6 Weight Status Overweight GI Symptoms GI Symptoms None Last BM 06/15 Difficult in: None Food Allergies No Skin Integrity/Comment: intact, latoya 17 Current %PO Good (75-100%) Estimated Nutritional Goals BEE in Kcals: Using Current wt Calories/Kcals/Kg 23-27 Kcals Calculated 8330-7206 Protein: Using Current wt Protein g/k.8-1 Protein Calculated 62-77 g Fluid: ml 0974-9561 (1 ml/kcal) Nutritional Problem 1. Problem Problem altered nutrition related lab values Etiology hyperglycemia, endocrine dysfunction Signs/Symptoms: POC 108-126 Malnutrition Alert Is there a minimum of two criteria No selected? Query Text:Check all the applicable criteria. A minimum of two criteria are recommended for diagnosis of either severe or non-severe malnutrition. Malnutrition Related to Morbid Obesity Malnutrition related to morbid obesity No Intervention/Recommendation Comments 1. Continue with [facility] soft chopped, EMILY, CCHO diet as ordered 2. Monitor PO intake, wt, labs and skin integrity 3. F/U as moderate risk in 3-5 days, 06/20-14 Expected Outcomes/Goals Expected Outcomes/Goals 1. PO intake to meet at least 75% of all meals 2. Wt stability, skin to remain intact, and nutrition related labs to approach normal limits Reviewed by Sugey Siu RD
--- NOTE | 2018-06-24 01:10 | Progress Notes ---
DATE: 06/23/2018 Case was discussed with staff of the patient. The patient continues to be agitated, continues to be unable to make safe plan for self-care. Continues to have poor insight and unable to make safe plan for self-care or participate in a meaningful conversation. Continues to need redirection and I will be increasing her Seroquel dose to 100 mg twice a day to help improve her agitation, psychosis and no side effects with the medication, no sedation, no nausea, no extrapyramidal symptoms. I will continue to work with the patient in group therapy, milieu therapy, and adjust the medication as needed. JOB# [id number]
[2018-06-24] MEDS: INSULIN ASPART SLIDING SCALE 100 UNITS/ML UNIT SUBQ SCH ×4 (06:46→20:42)
[2018-06-24] MEDS: Multivitamin Tab PO SCH (09:01)
--- NOTE | 2018-06-24 15:43 | Internal Medicine Prog Note ---
Internal Medicine Subjective - Subjective Service Date: 06/24/18 Patient seen and examined:: with staff Patient is:: awake, verbal, in bed, talking, confused Per staff patient has:: no adverse event Internal Medicine Objective - Results Result Diagrams: 06/14/18 17:19 06/14/18 17:19 Recent Labs: Laboratory Last Values WBC 12.3 Th/cmm (4.8-10.8) H 06/14/18 17:19 RBC 3.82 Mil/cmm (3.80-5.20) 06/14/18 17:19 Hgb 12.1 gm/dL (12-16) 06/14/18 17:19 Hct 36.8 % (41.0-60) L 06/14/18 17:19 MCV 96.4 fl (81-100) 06/14/18 17:19 MCH 31.7 pg (27.0-31.0) H 06/14/18 17:19 MCHC Differential 32.9 pg (28.0-36.0) 06/14/18 17:19 RDW 14.3 % (11.5-20.0) 06/14/18 17:19 Plt Count 375 Th/cmm (150-400) 06/14/18 17:19 MPV 9.2 fl 06/14/18 17:19 Neutrophils % 50.0 % (40.0-80.0) 06/14/18 17:19 Lymphocytes % 39.5 % (20.0-50.0) 06/14/18 17:19 Monocytes % 6.3 % (2.0-10.0) 06/14/18 17:19 Eosinophils % 3.2 % (0.0-5.0) 06/14/18 17:19 Basophils % 1.0 % (0.0-2.0) 06/14/18 17:19 Sodium 142 mEq/L (136-145) 06/14/18 17:19 Potassium 3.6 mEq/L (3.5-5.1) 06/14/18 17:19 Chloride 106 mEq/L (98-107) 06/14/18 17:19 Carbon Dioxide 26.2 mEq/L (21.0-31.0) 06/14/18 17:19 Anion Gap 13.4 (7.0-16.0) 06/14/18 17:19 BUN 25 mg/dL (7-25) 06/14/18 17:19 Creatinine 1.0 mg/dL (0.6-1.2) 06/14/18 17:19 Est GFR ( Amer) TNP 06/14/18 17:19 Est GFR (Non-Af Amer) TNP 06/14/18 17:19 BUN/Creatinine Ratio 25.0 06/14/18 17:19 Glucose 118 mg/dL (70-105) H 06/14/18 17:19 POC Glucose 159 MG/DL (70 - 105) H 06/24/18 11:45 Calcium 9.9 mg/dL (8.6-10.3) 06/14/18 17:19 Total Bilirubin 0.3 mg/dL (0.3-1.0) 06/14/18 17:19 AST 15 U/L (13-39) 06/14/18 17:19 ALT 13 U/L (7-52) 06/14/18 17:19 Alkaline Phosphatase 72 U/L (34-104) 06/14/18 17:19 Troponin I 0.01 ng/mL (0.01-0.05) 06/14/18 17:19 Total Protein 7.6 gm/dL (6.0-8.3) 06/14/18 17:19 Albumin 4.0 gm/dL (3.7-5.3) 06/14/18 17:19 Globulin 3.6 gm/dL 06/14/18 17:19 Albumin/Globulin Ratio 1.1 (1.0-1.8) 06/14/18 17:19 Triglycerides 189 mg/dL (<150) H 06/15/18 06:05 Cholesterol 200 mg/dL (<200) 06/15/18 06:05 LDL Cholesterol Direct 143 mg/dL (75-193) 06/15/18 06:05 HDL Cholesterol 40 mg/dL (23-92) 06/15/18 06:05 TSH 0.48 uIU/ml (0.34-5.60) 06/14/18 17:19 Salicylates < 25.0 mg/L (30.0-100.0) L 06/14/18 17:19 Acetaminophen < 10.0 ug/mL (10.0-30.0) L 06/14/18 17:19 Ethyl Alcohol < 10 mg/dL (0-10) 06/14/18 17:19 RPR NONREACTIVE (NONREACTIVE) 06/14/18 17:19 - Physical Exam Vitals and I&O: Vital Signs Temp 97.5 F 06/24/18 14:00 Pulse 60 06/24/18 14:00 Resp 20 06/24/18 14:00 BP 142/68 06/24/18 14:00 Pulse Ox 98 06/24/18 14:00 Intake & Output 06/23/18 06/24/18 06/24/18 18:59 06:59 18:59 Intake Total 1200 240 Balance 1200 240 Intake: Oral 1200 240 Other: # Voids 2 # Bowel Movements 1 Active Medications: Current Medications Acetaminophen (Tylenol) 650 mg PO Q4HR PRN PRN Reason: Mild Pain / Temp above 100 Stop: 08/13/18 20:40 Last Admin: 06/20/18 17:00 Dose: 650 mg Al Hydrox/Mg Hydrox/Simethicone (Maalox) 30 ml PO Q4HR PRN PRN Reason: GI DISTRESS Stop: 08/13/18 20:40 Amlodipine Besylate (Norvasc) 10 mg PO DAILY [facility] Stop: 08/14/18 08:59 Last Admin: 06/24/18 09:01 Dose: 10 mg Calamine/Phenol (Calmoseptine) 1 appl TP PRN PRN PRN Reason: IAD Stop: 08/17/18 05:59 Last Admin: 06/18/18 21:02 Dose: 1 appl Docusate Sodium (Colace) 100 mg PO BID [facility] Stop: 08/14/18 08:59 Last Admin: 06/24/18 09:01 Dose: 100 mg Heparin Sodium (Porcine) (Heparin) 5,000 units SUBQ Q12HR [facility] Stop: 08/13/18 21:59 Last Admin: 06/24/18 09:01 Dose: 5,000 units Insulin Aspart (Novolog Insulin Sliding Scale) 0 units SUBQ ACHS [facility]; Protocol Stop: 08/13/18 20:59 Last Admin: 06/24/18 12:02 Dose: 2 units Lorazepam (Ativan) 0.5 mg PO Q4H PRN; Protocol PRN Reason: Anxiety Stop: 08/13/18 20:34 Last Admin: 06/24/18 09:33 Dose: 0.5 mg Magnesium Hydroxide (Milk Of Magnesia) 30 ml PO Q4H PRN PRN Reason: Constipation Stop: 08/13/18 20:34 Metformin HCl (Glucophage) 500 mg PO BID [facility] Stop: 08/14/18 08:59 Last Admin: 06/24/18 09:01 Dose: 500 mg Mirtazapine (Remeron) 7.5 mg PO HS [facility]; Protocol Stop: 08/14/18 20:59 Last Admin: 06/23/18 21:11 Dose: 7.5 mg Multivitamins/Vitamin C (Theragran) 1 tab PO DAILY [facility] Stop: 08/14/18 08:59 Last Admin: 06/24/18 09:01 Dose: 1 tab Quetiapine Fumarate (Seroquel) 100 mg PO HS [facility]; Protocol Stop: 08/13/18 20:59 Last Admin: 06/23/18 21:12 Dose: 100 mg Quetiapine Fumarate (Seroquel) 100 mg PO BID [facility] Stop: 08/22/18 16:59 Last Admin: 06/24/18 09:04 Dose: 100 mg Zolpidem Tartrate (Ambien) 5 mg PO HS PRN PRN Reason: Insomnia Stop: 08/13/18 20:40 Last Admin: 06/23/18 23:04 Dose: 5 mg General: demented HEENT: NC/AT, PERRLA, EOMI, anicteric sclerae, throat clear Neck: Supple, No JVD, No thyromegaly, +2 carotid pulse wo bruit, No LAD, + JVD Cardiovascular: Normal S1, Normal S2, without murmur Abdomen: soft, non-tender, non-distended Extremities: clear Neurological: no change Internal Medicine Assmt/Plan - Assessment Assessment: 1.DM. 2.HTN. 3.HYPERLIPIDEMIA. 4.DEMENTIA. - Plan Plan: CONTINUE ON CURRENT MEDICATION AND DIET. Nutritional Asmnt/Malnutr-PDOC - Dietary Evaluation Malnutrition Findings (Please click <Entered> for more info): Nutritional Asmnt/Malnutrition Start: 06/17/18 12: 46 Text: Status: Complete Freq: Protocol: Document 06/17/18 12:46 DAYANNA (Rec: 06/17/18 12:55 [email or web address]) Nutritional Asmnt/Malnutrition Patient General Information Nutritional Screening Moderate Risk Diagnosis psychosis Pertinent Medical Hx/Surgical Hx HTN, DM, hyperlipidemia, dementia, bipolar disorder, psychosis, PUD/GERD, ESRD Subjective Information Pt sleeping at time of visit. Nursing noted PO intake: ~75%. Current Diet Order/ Nutrition Support [facility] soft chopped, EMILY, CCHO Pertinent Medications colace, heparin, novolog, metformin, remeron, theragran, seroquel Pertinent Labs 06/17: POC 108-126 06/16: POC 127-129 06/14 glucose 118 Nutritional Hx/Data Height 1.7 m Height (Calculated Centimeters) 170.2 Current Weight (lbs) 77.111 kg Weight (Calculated Kilograms) 77.1 Weight (Calculated Grams) 05013.7 [place] Body Weight 135 lb Body Mass Index (BMI) 26.6 Weight Status Overweight GI Symptoms GI Symptoms None Last BM 06/15 Difficult in: None Food Allergies No Skin Integrity/Comment: intact, latoya 17 Current %PO Good (75-100%) Estimated Nutritional Goals BEE in Kcals: Using Current wt Calories/Kcals/Kg 23-27 Kcals Calculated 2852-8618 Protein: Using Current wt Protein g/k.8-1 Protein Calculated 62-77 g Fluid: ml 0471-3635 (1 ml/kcal) Nutritional Problem 1. Problem Problem altered nutrition related lab values Etiology hyperglycemia, endocrine dysfunction Signs/Symptoms: POC 108-126 Malnutrition Alert Is there a minimum of two criteria No selected? Query Text:Check all the applicable criteria. A minimum of two criteria are recommended for diagnosis of either severe or non-severe malnutrition. Malnutrition Related to Morbid Obesity Malnutrition related to morbid obesity No Intervention/Recommendation Comments 1. Continue with [facility] soft chopped, EMILY, CCHO diet as ordered 2. Monitor PO intake, wt, labs and skin integrity 3. F/U as moderate risk in 3-5 days, 06/20- Expected Outcomes/Goals Expected Outcomes/Goals 1. PO intake to meet at least 75% of all meals 2. Wt stability, skin to remain intact, and nutrition related labs to approach normal limits Reviewed by Sugey Siu RD
--- NOTE | 2018-06-25 00:21 | Progress Notes ---
DATE: 06/24/2018 SUBJECTIVE: Case was discussed with staff of the patient, reviewed records. The patient is reported to be a bit calmer. I have been increasing her medication almost on a daily basis with the last adjustment being yesterday as I increased her Seroquel to 100 mg twice a day. She also took 100 mg at bedtime and today she is a bit sedated, so I cannot really make any adjustments, waiting for her to see how she will be doing after she has been taking this and working on discharge plan as well and will continue outpatient group therapy, milieu therapy, adjust medication as needed. JOB# [id number]
[2018-06-25] MEDS: INSULIN ASPART SLIDING SCALE 100 UNITS/ML UNIT SUBQ SCH ×4 (06:42→21:00)
[2018-06-25] MEDS: Multivitamin Tab PO SCH (09:35)
--- NOTE | 2018-06-25 18:33 | Internal Medicine Prog Note ---
Internal Medicine Subjective - Subjective Service Date: 06/25/18 Patient seen and examined:: with staff Patient is:: awake, verbal, in bed, talking, confused Per staff patient has:: no adverse event Internal Medicine Objective - Results Result Diagrams: 06/14/18 17:19 06/14/18 17:19 Recent Labs: Laboratory Last Values WBC 12.3 Th/cmm (4.8-10.8) H 06/14/18 17:19 RBC 3.82 Mil/cmm (3.80-5.20) 06/14/18 17:19 Hgb 12.1 gm/dL (12-16) 06/14/18 17:19 Hct 36.8 % (41.0-60) L 06/14/18 17:19 MCV 96.4 fl (81-100) 06/14/18 17:19 MCH 31.7 pg (27.0-31.0) H 06/14/18 17:19 MCHC Differential 32.9 pg (28.0-36.0) 06/14/18 17:19 RDW 14.3 % (11.5-20.0) 06/14/18 17:19 Plt Count 375 Th/cmm (150-400) 06/14/18 17:19 MPV 9.2 fl 06/14/18 17:19 Neutrophils % 50.0 % (40.0-80.0) 06/14/18 17:19 Lymphocytes % 39.5 % (20.0-50.0) 06/14/18 17:19 Monocytes % 6.3 % (2.0-10.0) 06/14/18 17:19 Eosinophils % 3.2 % (0.0-5.0) 06/14/18 17:19 Basophils % 1.0 % (0.0-2.0) 06/14/18 17:19 Sodium 142 mEq/L (136-145) 06/14/18 17:19 Potassium 3.6 mEq/L (3.5-5.1) 06/14/18 17:19 Chloride 106 mEq/L (98-107) 06/14/18 17:19 Carbon Dioxide 26.2 mEq/L (21.0-31.0) 06/14/18 17:19 Anion Gap 13.4 (7.0-16.0) 06/14/18 17:19 BUN 25 mg/dL (7-25) 06/14/18 17:19 Creatinine 1.0 mg/dL (0.6-1.2) 06/14/18 17:19 Est GFR ( Amer) TNP 06/14/18 17:19 Est GFR (Non-Af Amer) TNP 06/14/18 17:19 BUN/Creatinine Ratio 25.0 06/14/18 17:19 Glucose 118 mg/dL (70-105) H 06/14/18 17:19 POC Glucose 153 MG/DL (70 - 105) H 06/25/18 16:47 Calcium 9.9 mg/dL (8.6-10.3) 06/14/18 17:19 Total Bilirubin 0.3 mg/dL (0.3-1.0) 06/14/18 17:19 AST 15 U/L (13-39) 06/14/18 17:19 ALT 13 U/L (7-52) 06/14/18 17:19 Alkaline Phosphatase 72 U/L (34-104) 06/14/18 17:19 Troponin I 0.01 ng/mL (0.01-0.05) 06/14/18 17:19 Total Protein 7.6 gm/dL (6.0-8.3) 06/14/18 17:19 Albumin 4.0 gm/dL (3.7-5.3) 06/14/18 17:19 Globulin 3.6 gm/dL 06/14/18 17:19 Albumin/Globulin Ratio 1.1 (1.0-1.8) 06/14/18 17:19 Triglycerides 189 mg/dL (<150) H 06/15/18 06:05 Cholesterol 200 mg/dL (<200) 06/15/18 06:05 LDL Cholesterol Direct 143 mg/dL (75-193) 06/15/18 06:05 HDL Cholesterol 40 mg/dL (23-92) 06/15/18 06:05 TSH 0.48 uIU/ml (0.34-5.60) 06/14/18 17:19 Salicylates < 25.0 mg/L (30.0-100.0) L 06/14/18 17:19 Acetaminophen < 10.0 ug/mL (10.0-30.0) L 06/14/18 17:19 Ethyl Alcohol < 10 mg/dL (0-10) 06/14/18 17:19 RPR NONREACTIVE (NONREACTIVE) 06/14/18 17:19 - Physical Exam Vitals and I&O: Vital Signs Temp 97.6 F 06/25/18 14:00 Pulse 79 06/25/18 14:00 Resp 20 06/25/18 14:00 BP 156/76 06/25/18 14:00 Pulse Ox 96 06/25/18 14:00 Intake & Output 06/24/18 06/25/18 06/25/18 18:59 06:59 18:59 Intake Total 1200 120 960 Balance 1200 120 960 Intake: Oral 1200 120 960 Other: # Voids 3 3 # Bowel Movements 1 0 1 Active Medications: Current Medications Acetaminophen (Tylenol) 650 mg PO Q4HR PRN PRN Reason: Mild Pain / Temp above 100 Stop: 08/13/18 20:40 Last Admin: 06/20/18 17:00 Dose: 650 mg Al Hydrox/Mg Hydrox/Simethicone (Maalox) 30 ml PO Q4HR PRN PRN Reason: GI DISTRESS Stop: 08/13/18 20:40 Amlodipine Besylate (Norvasc) 10 mg PO DAILY [facility] Stop: 08/14/18 08:59 Last Admin: 06/25/18 09:36 Dose: 10 mg Calamine/Phenol (Calmoseptine) 1 appl TP PRN PRN PRN Reason: IAD Stop: 08/17/18 05:59 Last Admin: 06/18/18 21:02 Dose: 1 appl Docusate Sodium (Colace) 100 mg PO BID [facility] Stop: 08/14/18 08:59 Last Admin: 06/25/18 17:29 Dose: 100 mg Heparin Sodium (Porcine) (Heparin) 5,000 units SUBQ Q12HR [facility] Stop: 08/13/18 21:59 Last Admin: 06/25/18 09:35 Dose: 5,000 units Insulin Aspart (Novolog Insulin Sliding Scale) 0 units SUBQ ACHS [facility]; Protocol Stop: 08/13/18 20:59 Last Admin: 06/25/18 17:30 Dose: 2 units Lorazepam (Ativan) 0.5 mg PO Q4H PRN; Protocol PRN Reason: Anxiety Stop: 08/13/18 20:34 Last Admin: 06/25/18 15:52 Dose: 0.5 mg Magnesium Hydroxide (Milk Of Magnesia) 30 ml PO Q4H PRN PRN Reason: Constipation Stop: 08/13/18 20:34 Metformin HCl (Glucophage) 500 mg PO BID [facility] Stop: 08/14/18 08:59 Last Admin: 06/25/18 17:29 Dose: 500 mg Mirtazapine (Remeron) 7.5 mg PO HS [facility]; Protocol Stop: 08/14/18 20:59 Last Admin: 06/24/18 20:39 Dose: 7.5 mg Multivitamins/Vitamin C (Theragran) 1 tab PO DAILY [facility] Stop: 08/14/18 08:59 Last Admin: 06/25/18 09:35 Dose: 1 tab Quetiapine Fumarate (Seroquel) 100 mg PO HS [facility]; Protocol Stop: 08/13/18 20:59 Last Admin: 06/24/18 20:38 Dose: 100 mg Quetiapine Fumarate (Seroquel) 100 mg PO BID [facility] Stop: 08/22/18 16:59 Last Admin: 06/25/18 17:29 Dose: 100 mg Valproate Sodium (Depakene) 125 mg PO BID [facility]; Protocol Stop: 08/24/18 16:59 Last Admin: 06/25/18 17:28 Dose: 125 mg Zolpidem Tartrate (Ambien) 5 mg PO HS PRN PRN Reason: Insomnia Stop: 08/13/18 20:40 Last Admin: 06/25/18 03:45 Dose: 5 mg General: demented HEENT: NC/AT, PERRLA, EOMI, anicteric sclerae, throat clear Neck: Supple, No JVD, No thyromegaly, +2 carotid pulse wo bruit, No LAD, + JVD Cardiovascular: Normal S1, Normal S2, without murmur Abdomen: soft, non-tender, non-distended Extremities: clear Neurological: no change Internal Medicine Assmt/Plan - Assessment Assessment: 1.DM. 2.HTN. 3.HYPERLIPIDEMIA. 4.DEMENTIA. - Plan Plan: CONTINUE ON CURRENT MEDICATION AND DIET. Nutritional Asmnt/Malnutr-PDOC - Dietary Evaluation Malnutrition Findings (Please click <Entered> for more info): Nutritional Asmnt/Malnutrition Start: 06/17/18 12: 46 Text: Status: Complete Freq: Protocol: Document 06/17/18 12:46 DAYANNA (Rec: 06/17/18 12:55 DAYANNA [email or web address]) Nutritional Asmnt/Malnutrition Patient General Information Nutritional Screening Moderate Risk Diagnosis psychosis Pertinent Medical Hx/Surgical Hx HTN, DM, hyperlipidemia, dementia, bipolar disorder, psychosis, PUD/GERD, ESRD Subjective Information Pt sleeping at time of visit. Nursing noted PO intake: ~75%. Current Diet Order/ Nutrition Support [facility] soft chopped, EMILY, CCHO Pertinent Medications colace, heparin, novolog, metformin, remeron, theragran, seroquel Pertinent Labs 06/17: POC 108-126 06/16: POC 127-129 06/14 glucose 118 Nutritional Hx/Data Height 1.7 m Height (Calculated Centimeters) 170.2 Current Weight (lbs) 77.111 kg Weight (Calculated Kilograms) 77.1 Weight (Calculated Grams) 65606.7 [place] Body Weight 135 lb Body Mass Index (BMI) 26.6 Weight Status Overweight GI Symptoms GI Symptoms None Last BM 06/15 Difficult in: None Food Allergies No Skin Integrity/Comment: intact, latoya 17 Current %PO Good (75-100%) Estimated Nutritional Goals BEE in Kcals: Using Current wt Calories/Kcals/Kg 23-27 Kcals Calculated 4867-7202 Protein: Using Current wt Protein g/k.8-1 Protein Calculated 62-77 g Fluid: ml 1837-6972 (1 ml/kcal) Nutritional Problem 1. Problem Problem altered nutrition related lab values Etiology hyperglycemia, endocrine dysfunction Signs/Symptoms: POC 108-126 Malnutrition Alert Is there a minimum of two criteria No selected? Query Text:Check all the applicable criteria. A minimum of two criteria are recommended for diagnosis of either severe or non-severe malnutrition. Malnutrition Related to Morbid Obesity Malnutrition related to morbid obesity No Intervention/Recommendation Comments 1. Continue with [facility] soft chopped, EMILY, CCHO diet as ordered 2. Monitor PO intake, wt, labs and skin integrity 3. F/U as moderate risk in 3-5 days, 06/20- Expected Outcomes/Goals Expected Outcomes/Goals 1. PO intake to meet at least 75% of all meals 2. Wt stability, skin to remain intact, and nutrition related labs to approach normal limits Reviewed by Sugey Siu RD
--- NOTE | 2018-06-25 23:03 | Progress Notes ---
DATE: 06/25/2018 Case was discussed with staff of the patient, reviewed records. The patient continues to have episodes of feeling screaming till yesterday. Continues to be unpredictable, impulsive, needing redirection. Continues to have poor insight. She is also demented, confused. I will be adding Depakote to her medication as the Seroquel despite increasing ____ has not been very helpful. No side effects with the medication, no sedation, no nausea, no extrapyramidal symptoms. I will be adding ____ 125 mg twice a day. Discussed side effects. We will continue to work with the patient in group therapy, milieu therapy, and adjust the medication as needed. JOB# [id number]
[2018-06-26] MEDS: INSULIN ASPART SLIDING SCALE 100 UNITS/ML UNIT SUBQ SCH ×4 (06:36→20:13)
[2018-06-26] MEDS: Multivitamin Tab PO SCH ×2 (09:51→10:12)
--- NOTE | 2018-06-26 13:28 | Progress Notes ---
DATE: 06/26/2018 Case was discussed with staff of the patient, reviewed records. The patient was yelling and screaming today; however, I have added Depakote yesterday to her medication and the Seroquel has been increased almost on a daily basis; however, the staff not tell me that she did not get her morning dose of Seroquel, so I advised the staff to go ahead and give it to her now. The patient continues to be unpredictable and impulsive. Continues to have mood swings, irritability. Probably, I will go ahead and change the Depakote to 250 though she has been taking a 24-hour. She is only yelling and screaming. No side effects with the medications. No sedation or nausea. No extrapyramidal symptoms. We will continue to work with the patient in group therapy, milieu therapy, adjust medications as needed. JOB# [id number]
--- NOTE | 2018-06-26 17:56 | Internal Medicine Prog Note ---
Internal Medicine Subjective - Subjective Service Date: 06/26/18 Patient seen and examined:: with staff Patient is:: awake, verbal, in bed, talking, confused Per staff patient has:: no adverse event Internal Medicine Objective - Results Result Diagrams: 06/14/18 17:19 06/14/18 17:19 Recent Labs: Laboratory Last Values WBC 12.3 Th/cmm (4.8-10.8) H 06/14/18 17:19 RBC 3.82 Mil/cmm (3.80-5.20) 06/14/18 17:19 Hgb 12.1 gm/dL (12-16) 06/14/18 17:19 Hct 36.8 % (41.0-60) L 06/14/18 17:19 MCV 96.4 fl (81-100) 06/14/18 17:19 MCH 31.7 pg (27.0-31.0) H 06/14/18 17:19 MCHC Differential 32.9 pg (28.0-36.0) 06/14/18 17:19 RDW 14.3 % (11.5-20.0) 06/14/18 17:19 Plt Count 375 Th/cmm (150-400) 06/14/18 17:19 MPV 9.2 fl 06/14/18 17:19 Neutrophils % 50.0 % (40.0-80.0) 06/14/18 17:19 Lymphocytes % 39.5 % (20.0-50.0) 06/14/18 17:19 Monocytes % 6.3 % (2.0-10.0) 06/14/18 17:19 Eosinophils % 3.2 % (0.0-5.0) 06/14/18 17:19 Basophils % 1.0 % (0.0-2.0) 06/14/18 17:19 Sodium 142 mEq/L (136-145) 06/14/18 17:19 Potassium 3.6 mEq/L (3.5-5.1) 06/14/18 17:19 Chloride 106 mEq/L (98-107) 06/14/18 17:19 Carbon Dioxide 26.2 mEq/L (21.0-31.0) 06/14/18 17:19 Anion Gap 13.4 (7.0-16.0) 06/14/18 17:19 BUN 25 mg/dL (7-25) 06/14/18 17:19 Creatinine 1.0 mg/dL (0.6-1.2) 06/14/18 17:19 Est GFR ( Amer) TNP 06/14/18 17:19 Est GFR (Non-Af Amer) TNP 06/14/18 17:19 BUN/Creatinine Ratio 25.0 06/14/18 17:19 Glucose 118 mg/dL (70-105) H 06/14/18 17:19 POC Glucose 179 MG/DL (70 - 105) H 06/26/18 15:56 Calcium 9.9 mg/dL (8.6-10.3) 06/14/18 17:19 Total Bilirubin 0.3 mg/dL (0.3-1.0) 06/14/18 17:19 AST 15 U/L (13-39) 06/14/18 17:19 ALT 13 U/L (7-52) 06/14/18 17:19 Alkaline Phosphatase 72 U/L (34-104) 06/14/18 17:19 Troponin I 0.01 ng/mL (0.01-0.05) 06/14/18 17:19 Total Protein 7.6 gm/dL (6.0-8.3) 06/14/18 17:19 Albumin 4.0 gm/dL (3.7-5.3) 06/14/18 17:19 Globulin 3.6 gm/dL 06/14/18 17:19 Albumin/Globulin Ratio 1.1 (1.0-1.8) 06/14/18 17:19 Triglycerides 189 mg/dL (<150) H 06/15/18 06:05 Cholesterol 200 mg/dL (<200) 06/15/18 06:05 LDL Cholesterol Direct 143 mg/dL (75-193) 06/15/18 06:05 HDL Cholesterol 40 mg/dL (23-92) 06/15/18 06:05 TSH 0.48 uIU/ml (0.34-5.60) 06/14/18 17:19 Salicylates < 25.0 mg/L (30.0-100.0) L 06/14/18 17:19 Acetaminophen < 10.0 ug/mL (10.0-30.0) L 06/14/18 17:19 Ethyl Alcohol < 10 mg/dL (0-10) 06/14/18 17:19 RPR NONREACTIVE (NONREACTIVE) 06/14/18 17:19 - Physical Exam Vitals and I&O: Vital Signs Temp 97.4 F 06/26/18 14:00 Pulse 74 06/26/18 14:00 Resp 18 06/26/18 14:00 BP 118/74 06/26/18 14:00 Pulse Ox 96 06/26/18 14:00 Intake & Output 06/25/18 06/26/18 06/26/18 18:59 06:59 18:59 Intake Total 960 Balance 960 Intake: Oral 960 Other: # Voids 3 # Bowel Movements 1 Active Medications: Current Medications Acetaminophen (Tylenol) 650 mg PO Q4HR PRN PRN Reason: Mild Pain / Temp above 100 Stop: 08/13/18 20:40 Last Admin: 06/20/18 17:00 Dose: 650 mg Al Hydrox/Mg Hydrox/Simethicone (Maalox) 30 ml PO Q4HR PRN PRN Reason: GI DISTRESS Stop: 08/13/18 20:40 Amlodipine Besylate (Norvasc) 10 mg PO DAILY [facility] Stop: 08/14/18 08:59 Last Admin: 06/26/18 10:11 Dose: Not Given Calamine/Phenol (Calmoseptine) 1 appl TP PRN PRN PRN Reason: IAD Stop: 08/17/18 05:59 Last Admin: 06/18/18 21:02 Dose: 1 appl Docusate Sodium (Colace) 100 mg PO BID [facility] Stop: 08/14/18 08:59 Last Admin: 06/26/18 16:51 Dose: 100 mg Heparin Sodium (Porcine) (Heparin) 5,000 units SUBQ Q12HR [facility] Stop: 08/13/18 21:59 Last Admin: 06/26/18 09:51 Dose: 5,000 units Insulin Aspart (Novolog Insulin Sliding Scale) 0 units SUBQ ACHS [facility]; Protocol Stop: 08/13/18 20:59 Last Admin: 06/26/18 16:00 Dose: 2 units Lorazepam (Ativan) 0.5 mg PO Q4H PRN; Protocol PRN Reason: Anxiety Stop: 08/13/18 20:34 Last Admin: 06/26/18 11:56 Dose: 0.5 mg Magnesium Hydroxide (Milk Of Magnesia) 30 ml PO Q4H PRN PRN Reason: Constipation Stop: 08/13/18 20:34 Metformin HCl (Glucophage) 500 mg PO BID [facility] Stop: 08/14/18 08:59 Last Admin: 06/26/18 16:51 Dose: 500 mg Mirtazapine (Remeron) 7.5 mg PO HS [facility]; Protocol Stop: 08/14/18 20:59 Last Admin: 06/25/18 21:01 Dose: 7.5 mg Multivitamins/Vitamin C (Theragran) 1 tab PO DAILY [facility] Stop: 08/14/18 08:59 Last Admin: 06/26/18 10:12 Dose: Not Given Quetiapine Fumarate (Seroquel) 100 mg PO HS [facility]; Protocol Stop: 08/13/18 20:59 Last Admin: 06/25/18 21:01 Dose: 100 mg Quetiapine Fumarate (Seroquel) 100 mg PO BID [facility] Stop: 08/22/18 16:59 Last Admin: 06/26/18 16:51 Dose: 100 mg Valproate Sodium (Depakene) 250 mg PO BID [facility]; Protocol Stop: 08/25/18 16:59 Last Admin: 06/26/18 16:50 Dose: 250 mg Zolpidem Tartrate (Ambien) 5 mg PO HS PRN PRN Reason: Insomnia Stop: 08/13/18 20:40 Last Admin: 06/25/18 23:50 Dose: 5 mg General: demented HEENT: NC/AT, PERRLA, EOMI, anicteric sclerae, throat clear Neck: Supple, No JVD, No thyromegaly, +2 carotid pulse wo bruit, No LAD, + JVD Cardiovascular: Normal S1, Normal S2, without murmur Abdomen: soft, non-tender, non-distended Extremities: clear Neurological: no change Internal Medicine Assmt/Plan - Assessment Assessment: 1.DM. 2.HTN. 3.HYPERLIPIDEMIA. 4.DEMENTIA. - Plan Plan: CONTINUE ON CURRENT MEDICATION AND DIET. Nutritional Asmnt/Malnutr-PDOC - Dietary Evaluation Malnutrition Findings (Please click <Entered> for more info): Nutritional Asmnt/Malnutrition Start: 06/17/18 12: 46 Text: Status: Complete Freq: Protocol: Document 06/17/18 12:46 DAYANNA (Rec: 06/17/18 12:55 DAYANNA [email or web address]) Nutritional Asmnt/Malnutrition Patient General Information Nutritional Screening Moderate Risk Diagnosis psychosis Pertinent Medical Hx/Surgical Hx HTN, DM, hyperlipidemia, dementia, bipolar disorder, psychosis, PUD/GERD, ESRD Subjective Information Pt sleeping at time of visit. Nursing noted PO intake: ~75%. Current Diet Order/ Nutrition Support [facility] soft chopped, EMILY, CCHO Pertinent Medications colace, heparin, novolog, metformin, remeron, theragran, seroquel Pertinent Labs 06/17: POC 108-126 06/16: POC 127-129 06/14 glucose 118 Nutritional Hx/Data Height 1.7 m Height (Calculated Centimeters) 170.2 Current Weight (lbs) 77.111 kg Weight (Calculated Kilograms) 77.1 Weight (Calculated Grams) 48075.7 [place] Body Weight 135 lb Body Mass Index (BMI) 26.6 Weight Status Overweight GI Symptoms GI Symptoms None Last BM 06/15 Difficult in: None Food Allergies No Skin Integrity/Comment: intact, latoya 17 Current %PO Good (75-100%) Estimated Nutritional Goals BEE in Kcals: Using Current wt Calories/Kcals/Kg 23-27 Kcals Calculated 8943-8462 Protein: Using Current wt Protein g/k.8-1 Protein Calculated 62-77 g Fluid: ml 7898-7126 (1 ml/kcal) Nutritional Problem 1. Problem Problem altered nutrition related lab values Etiology hyperglycemia, endocrine dysfunction Signs/Symptoms: POC 108-126 Malnutrition Alert Is there a minimum of two criteria No selected? Query Text:Check all the applicable criteria. A minimum of two criteria are recommended for diagnosis of either severe or non-severe malnutrition. Malnutrition Related to Morbid Obesity Malnutrition related to morbid obesity No Intervention/Recommendation Comments 1. Continue with [facility] soft chopped, EMILY, CCHO diet as ordered 2. Monitor PO intake, wt, labs and skin integrity 3. F/U as moderate risk in 3-5 days, 06/20- Expected Outcomes/Goals Expected Outcomes/Goals 1. PO intake to meet at least 75% of all meals 2. Wt stability, skin to remain intact, and nutrition related labs to approach normal limits Reviewed by Sugey Siu RD
[2018-06-27] MEDS: INSULIN ASPART SLIDING SCALE 100 UNITS/ML UNIT SUBQ SCH ×4 (06:34→21:38)
[2018-06-27] MEDS: Multivitamin Tab PO SCH (08:38)
--- NOTE | 2018-06-27 21:12 | Internal Medicine Prog Note ---
Internal Medicine Subjective - Subjective Service Date: 06/27/18 Patient seen and examined:: with staff Patient is:: awake, verbal, in bed, talking, confused Per staff patient has:: no adverse event Internal Medicine Objective - Results Result Diagrams: 06/14/18 17:19 06/14/18 17:19 Recent Labs: Laboratory Last Values WBC 12.3 Th/cmm (4.8-10.8) H 06/14/18 17:19 RBC 3.82 Mil/cmm (3.80-5.20) 06/14/18 17:19 Hgb 12.1 gm/dL (12-16) 06/14/18 17:19 Hct 36.8 % (41.0-60) L 06/14/18 17:19 MCV 96.4 fl (81-100) 06/14/18 17:19 MCH 31.7 pg (27.0-31.0) H 06/14/18 17:19 MCHC Differential 32.9 pg (28.0-36.0) 06/14/18 17:19 RDW 14.3 % (11.5-20.0) 06/14/18 17:19 Plt Count 375 Th/cmm (150-400) 06/14/18 17:19 MPV 9.2 fl 06/14/18 17:19 Neutrophils % 50.0 % (40.0-80.0) 06/14/18 17:19 Lymphocytes % 39.5 % (20.0-50.0) 06/14/18 17:19 Monocytes % 6.3 % (2.0-10.0) 06/14/18 17:19 Eosinophils % 3.2 % (0.0-5.0) 06/14/18 17:19 Basophils % 1.0 % (0.0-2.0) 06/14/18 17:19 Sodium 142 mEq/L (136-145) 06/14/18 17:19 Potassium 3.6 mEq/L (3.5-5.1) 06/14/18 17:19 Chloride 106 mEq/L (98-107) 06/14/18 17:19 Carbon Dioxide 26.2 mEq/L (21.0-31.0) 06/14/18 17:19 Anion Gap 13.4 (7.0-16.0) 06/14/18 17:19 BUN 25 mg/dL (7-25) 06/14/18 17:19 Creatinine 1.0 mg/dL (0.6-1.2) 06/14/18 17:19 Est GFR ( Amer) TNP 06/14/18 17:19 Est GFR (Non-Af Amer) TNP 06/14/18 17:19 BUN/Creatinine Ratio 25.0 06/14/18 17:19 Glucose 118 mg/dL (70-105) H 06/14/18 17:19 POC Glucose 135 MG/DL (70 - 105) H 06/27/18 06:30 Calcium 9.9 mg/dL (8.6-10.3) 06/14/18 17:19 Total Bilirubin 0.3 mg/dL (0.3-1.0) 06/14/18 17:19 AST 15 U/L (13-39) 06/14/18 17:19 ALT 13 U/L (7-52) 06/14/18 17:19 Alkaline Phosphatase 72 U/L (34-104) 06/14/18 17:19 Troponin I 0.01 ng/mL (0.01-0.05) 06/14/18 17:19 Total Protein 7.6 gm/dL (6.0-8.3) 06/14/18 17:19 Albumin 4.0 gm/dL (3.7-5.3) 06/14/18 17:19 Globulin 3.6 gm/dL 06/14/18 17:19 Albumin/Globulin Ratio 1.1 (1.0-1.8) 06/14/18 17:19 Triglycerides 189 mg/dL (<150) H 06/15/18 06:05 Cholesterol 200 mg/dL (<200) 06/15/18 06:05 LDL Cholesterol Direct 143 mg/dL (75-193) 06/15/18 06:05 HDL Cholesterol 40 mg/dL (23-92) 06/15/18 06:05 TSH 0.48 uIU/ml (0.34-5.60) 06/14/18 17:19 Salicylates < 25.0 mg/L (30.0-100.0) L 06/14/18 17:19 Acetaminophen < 10.0 ug/mL (10.0-30.0) L 06/14/18 17:19 Ethyl Alcohol < 10 mg/dL (0-10) 06/14/18 17:19 RPR NONREACTIVE (NONREACTIVE) 06/14/18 17:19 - Physical Exam Vitals and I&O: Vital Signs Temp 98.0 F 06/27/18 14:00 Pulse 97 06/27/18 14:00 Resp 20 06/27/18 14:00 BP 105/56 06/27/18 14:00 Pulse Ox 97 06/27/18 14:00 Intake & Output 06/27/18 06/27/18 06/28/18 06:59 18:59 06:59 Intake Total 120 700 60 Balance 120 700 60 Intake: Oral 120 700 60 Other: # Voids 3 3 1 # Bowel Movements 0 1 Active Medications: Current Medications Acetaminophen (Tylenol) 650 mg PO Q4HR PRN PRN Reason: Mild Pain / Temp above 100 Stop: 08/13/18 20:40 Last Admin: 06/20/18 17:00 Dose: 650 mg Al Hydrox/Mg Hydrox/Simethicone (Maalox) 30 ml PO Q4HR PRN PRN Reason: GI DISTRESS Stop: 08/13/18 20:40 Amlodipine Besylate (Norvasc) 10 mg PO DAILY [facility] Stop: 08/14/18 08:59 Last Admin: 06/27/18 08:38 Dose: 10 mg Calamine/Phenol (Calmoseptine) 1 appl TP PRN PRN PRN Reason: IAD Stop: 08/17/18 05:59 Last Admin: 06/18/18 21:02 Dose: 1 appl Docusate Sodium (Colace) 100 mg PO BID [facility] Stop: 08/14/18 08:59 Last Admin: 06/27/18 17:09 Dose: Not Given Heparin Sodium (Porcine) (Heparin) 5,000 units SUBQ Q12HR [facility] Stop: 08/13/18 21:59 Last Admin: 06/27/18 08:38 Dose: 5,000 units Insulin Aspart (Novolog Insulin Sliding Scale) 0 units SUBQ ACHS [facility]; Protocol Stop: 08/13/18 20:59 Last Admin: 06/27/18 17:09 Dose: Not Given Lorazepam (Ativan) 0.5 mg PO Q4H PRN; Protocol PRN Reason: Anxiety Stop: 08/13/18 20:34 Last Admin: 06/26/18 11:56 Dose: 0.5 mg Magnesium Hydroxide (Milk Of Magnesia) 30 ml PO Q4H PRN PRN Reason: Constipation Stop: 08/13/18 20:34 Metformin HCl (Glucophage) 500 mg PO BID [facility] Stop: 08/14/18 08:59 Last Admin: 06/27/18 17:09 Dose: Not Given Mirtazapine (Remeron) 7.5 mg PO HS [facility]; Protocol Stop: 08/14/18 20:59 Last Admin: 06/26/18 20:10 Dose: 7.5 mg Multivitamins/Vitamin C (Theragran) 1 tab PO DAILY [facility] Stop: 08/14/18 08:59 Last Admin: 06/27/18 08:38 Dose: 1 tab Quetiapine Fumarate (Seroquel) 100 mg PO HS [facility]; Protocol Stop: 08/13/18 20:59 Last Admin: 06/26/18 20:10 Dose: 100 mg Quetiapine Fumarate 100 mg/ (Quetiapine Fumarate 25 mg) 125 mg PO BID [facility] Stop: 08/26/18 16:59 Last Admin: 06/27/18 17:09 Dose: Not Given Valproate Sodium (Depakene) 250 mg PO BID [facility]; Protocol Stop: 08/25/18 16:59 Last Admin: 06/27/18 17:09 Dose: Not Given Zolpidem Tartrate (Ambien) 5 mg PO HS PRN PRN Reason: Insomnia Stop: 08/13/18 20:40 Last Admin: 06/26/18 20:10 Dose: 5 mg General: demented HEENT: NC/AT, PERRLA, EOMI, anicteric sclerae, throat clear Neck: Supple, No JVD, No thyromegaly, +2 carotid pulse wo bruit, No LAD, + JVD Cardiovascular: Normal S1, Normal S2, without murmur Abdomen: soft, non-tender, non-distended Extremities: clear Neurological: no change Internal Medicine Assmt/Plan - Assessment Assessment: 1.DM. 2.HTN. 3.HYPERLIPIDEMIA. 4.DEMENTIA. - Plan Plan: CONTINUE ON CURRENT MEDICATION AND DIET. Nutritional Asmnt/Malnutr-PDOC - Dietary Evaluation Malnutrition Findings (Please click <Entered> for more info): Nutritional Asmnt/Malnutrition Start: 06/17/18 12: 46 Text: Status: Complete Freq: Protocol: Document 06/17/18 12:46 DAYANNA (Rec: 06/17/18 12:55 DAYANNA [email or web address]) Nutritional Asmnt/Malnutrition Patient General Information Nutritional Screening Moderate Risk Diagnosis psychosis Pertinent Medical Hx/Surgical Hx HTN, DM, hyperlipidemia, dementia, bipolar disorder, psychosis, PUD/GERD, ESRD Subjective Information Pt sleeping at time of visit. Nursing noted PO intake: ~75%. Current Diet Order/ Nutrition Support [facility] soft chopped, EMILY, [facility] Pertinent Medications colace, heparin, novolog, metformin, remeron, theragran, seroquel Pertinent Labs 06/17: POC 108-126 06/16: POC 127-129 06/14 glucose 118 Nutritional Hx/Data Height 1.7 m Height (Calculated Centimeters) 170.2 Current Weight (lbs) 77.111 kg Weight (Calculated Kilograms) 77.1 Weight (Calculated Grams) 45780.7 Pepin Body Weight 135 lb Body Mass Index (BMI) 26.6 Weight Status Overweight GI Symptoms GI Symptoms None Last BM 06/15 Difficult in: None Food Allergies No Skin Integrity/Comment: intact, latoya 17 Current %PO Good (75-100%) Estimated Nutritional Goals BEE in Kcals: Using Current wt Calories/Kcals/Kg 23-27 Kcals Calculated 3988-8045 Protein: Using Current wt Protein g/k.8-1 Protein Calculated 62-77 g Fluid: ml 1085-2821 (1 ml/kcal) Nutritional Problem 1. Problem Problem altered nutrition related lab values Etiology hyperglycemia, endocrine dysfunction Signs/Symptoms: POC 108-126 Malnutrition Alert Is there a minimum of two criteria No selected? Query Text:Check all the applicable criteria. A minimum of two criteria are recommended for diagnosis of either severe or non-severe malnutrition. Malnutrition Related to Morbid Obesity Malnutrition related to morbid obesity No Intervention/Recommendation Comments 1. Continue with [facility] soft chopped, EMILY, [facility] diet as ordered 2. Monitor PO intake, wt, labs and skin integrity 3. F/U as moderate risk in 3-5 days, 06/20- Expected Outcomes/Goals Expected Outcomes/Goals 1. PO intake to meet at least 75% of all meals 2. Wt stability, skin to remain intact, and nutrition related labs to approach normal limits Reviewed by Sugey Siu RD
--- NOTE | 2018-06-27 22:49 | Progress Notes ---
DATE: 06/27/2018 Case was discussed with staff of the patient, reviewed records. The patient continues to be yelling and screaming. Continues to have poor insight. Continues to be unable to make safe plan for self-care, unpredictable, impulsive, yelling and screaming for no apparent reason. I did increase the Depakote dose yesterday. Her Seroquel dose has been increased on a daily basis. I will be making further adjustment to the Seroquel to make it 125 mg twice a day and so far no side effects with the medication, no sedation, no nausea, no extrapyramidal symptoms. We will continue to work with the patient in group therapy, milieu therapy, and adjust the medication as needed. JOB# [id number]
[2018-06-28] MEDS: INSULIN ASPART SLIDING SCALE 100 UNITS/ML UNIT SUBQ SCH ×3 (06:57→17:21)
[2018-06-28] MEDS: Multivitamin Tab PO SCH (08:59)
--- NOTE | 2018-06-28 16:04 | Discharge Summary ---
DATE OF DISCHARGE: 06/28/2018 IDENTIFYING INFORMATION: The patient is a 72-year-old female. CHIEF COMPLAINT: Admitted on a hold. HISTORY OF PRESENT ILLNESS: The patient was yelling and screaming. She was confused, making nonsensical statements, refusing to sign voluntary admission. She has been noncompliant with her medication. The patient needs total care, very agitated, unable to state discharge plan for self-care and hard to redirect, had to be medicated with the history of dementia and bipolar disorder. The patient well-known case. I have been seeing her at [place]. The patient has been Remeron 75 mg, Seroquel 25 mg twice a day and 100 mg at bedtime. COURSE IN THE HOSPITAL: The patient was continued on medication. Seroquel dose was increased over the course of her stay to 125 at bedtime, 125 twice a day and added Depakote 250 mg twice a day because her agitation, yelling and screaming. Also Remeron was added 7.5 mg at bedtime, that she is on and patient continue with amlodipine and insulin. The patient also was performed on multivitamin. The patient continues to be yelling, screaming, most of the time, but the last 2 days she was here, she was no longer yelling and screaming. She had to be fed by the staff. She was sleeping well, eating well. So that point, we felt the patient was ready to go to a lesser level of care as the patient was in a residential her medication can be adjusted there. Dr. Dr. Moon in the care of her medical condition while she is here. FINAL DIAGNOSES: Psychosis, not otherwise specified, bipolar disorder with psychosis; dementia. MEDICAL DIAGNOSES: Hypertension, diabetes mellitus. The patient will be going back to [place], will follow up with the psychiatrist, primary care physician there. EXPECTED OUTCOME: Stable if the patient complies with the above. [facility]# [id number]
== END 2018-06-28 17:05 | DRG 885 ==
LOC: ER 17:00 → GERO 18:30
PROVIDERS: ADMIT Psychiatry & Neurology Psychiatry; ATTEND Psychiatry & Neurology Psychiatry
DX: F31.5 Bipolar disorder, current episode depressed, severe, with psychotic features (principal); N18.9 Chronic kidney disease, unspecified; F29 Unspecified psychosis not due to a substance or known physiological condition; F03.90 Unspecified dementia, unspecified severity, without behavioral disturbance, psychotic disturbance, mood disturbance, and anxiety; K21.9 Gastro-esophageal reflux disease without esophagitis; K27.9 Peptic ulcer, site unspecified, unspecified as acute or chronic, without hemorrhage or perforation; I12.9 Hypertensive chronic kidney disease with stage 1 through stage 4 chronic kidney disease, or unspecified chronic kidney disease; E78.5 Hyperlipidemia, unspecified; E11.22 Type 2 diabetes mellitus with diabetic chronic kidney disease; Z82.49 Family history of ischemic heart disease and other diseases of the circulatory system; Z83.3 Family history of diabetes mellitus; Z91.14 Patient's other noncompliance with medication regimen; Z66 Do not resuscitate
CPT/HCPCS: 36415-UA; 80053-TC; 80061-TC; 80320-TC; 80329-TC; 82948-90; 83036-90; 84443-TC; 84484-TC; 85025-TC; 86592-TC; 93005; J1200; J1630; J1644; J1815; J2060; Z7610